=== PATIENT | male | born 1945 | race Caucasian/White ===

== ENCOUNTER 2016-03-15 10:33 | Day surgery (SDC) | payer OTHER ==
[~2016-03-15] VITALS: Ht 190.5 cm; Wt 117.9 kg
[~2016-03-15 10:33] MED LIST: CLOP75TA3 PO; INS7030U SUBQ; LISI-567 PO; LOVA10TA PO; Lactated Ringer's 1,000 ML IV ONE
[2016-03-15] MEDS ORDERED: Propofol 10,000 mCg/mL 20 mL Inj ONE (10:34)
[2016-03-15 11:27] VITALS: BP 124/79; PULSE 31; RESP 14; O2SAT 98
[2016-03-15] MEDS ORDERED: Lactated Ringer's 1,000 ML IV SCH (11:54)
--- NOTE | 2016-03-15 11:54 | PCM.HPANE ---
Patient Data Surgeon Admitting Provider: Attending Provider:Yakov Pratt MD Primary Care Physician:Uli Delgado MD Other Provider:[facility] Reason for Visit Colon Polyp Ht/WT & BMI Height (Feet): 6 Height (Inches): 3 Weight (Kilograms): 117.93 Body Mass Index 32.00 Allergies Coded Allergies: No Known Drug Allergies (Verified Allergy, Unknown, 03/14/16) Past Anesthesia History Anesthesia History: Denies:: Abnormal Airway, Anesthesia Reactions, Difficult Intubation, Fam Anesthesia Reaction, Fam Malignant Hypertherm, Malignant Hyperthermia Diabetes History Hx Diabetes?: Yes Current Bedside Blood Glucose: 84 MRSA MRSA: No Medications Reported Medications Clopidogrel Bisulfate (Plavix)75 Mg [id number] Mg PO DAILY 30 Days Ref 0 03/14/16 Insul NPH Hu Rec/Ins Rg Hu Rec (Novolin 70/30 U100 Insulin Vial)100 U/1 Ml U1 U SUBQ DIRECTED PRN diabetes control #1 VIAL Ref 0 03/14/16 Lovastatin 10 Mg [id number] Mg PO HS #30 TABLET Ref 0 03/14/16 Lisinopril 20 Mg [id number] Mg PO DAILY 30 Days Ref 0 03/14/16 History HEENT History: Positive for:: Hearing Problem Denies:: Abnormal Airway Difficult Intubation Hx of Heart Problems?: Yes Cardiovascular History: Positive for:: Hypertension Hx of Respiratory Problem?: No Neurological History: 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) Hx of GI Problems?: Yes Gastrointestinal History: Positive for:: Gastroesphageal Reflux Hx Surgeries?: Yes (back, vastectomy,angioplasty,adnoids, umbilical hernia) Hx Any Other Health Problems?: Yes Hx Diabetes: YesBedside Blood Glucose: 84 Hx Alcohol Use: No Stop/Bang Treated for Sleep Apnea?: No Do You Have a CPAP Machine?: No S-Snoring: Do You Snore Loudly: Yes T-Tired: feel tired, fatigued: No O-Obsered: Observed not breath: No P-Blood Pressure: treated: Yes B- Body Mass Index > 35 kg/m2: Yes A- Age over 50: Yes N- Neck Large Circumference: No G- Gender Male: Yes JUAN Total Score: 5 JUAN Risk Assessment: High Risk, =/>3 Yes Risk Assessment Category Category 1A: Patient has history of documented sleep apnea, and HAS NOT received any narcotic, sedative or anesthesia administration during this stay. Category 1B: Patient has history of documented sleep apnea, and HAS received any narcotic , sedative or anesthesia administration during this stay Category 2: Patient has SUSPECTED Obstructive Sleep Apnea, and HAS received any narcotic , sedative or anesthesia administration during this stay. Category 3: Patient has SUSPECTED Obstructive Sleep Apnea and HAS NOT received narcotic, sedative or anesthesia administration during this stay. Category 4: Outpatient in Procedural Areas with known sleep apnea or who screen positive for High Risk via the STOP/BANG questionnaire. Exam Exam Vital Signs Vital Signs Date Time Temp Pulse Resp B/P Pulse Ox O2 Delivery O2 Flow Rate FiO2 03/15/16 11:27 36.5 31 14 124/79 98 Room Air General Appearance: Oriented X3 HEENT/AIRWAY: MP 2 Lungs: Normal Air Movement Heart: Regular Rate/Rhythm Meds/Labs/Diagnostics Admission Meds Current Medications Lactated Ringer's (Lr) 1,000 ml @ 10 mls/hr Q24H ONCE IV Last administered on 03/15/16t 11:28; Start 03/15/16 at 06:00; Stop 03/16/16 at 05:59 Bedside Blood Glucose: 84 Plan Impression Patient chart reviewed, patient interviewed and anesthestic plan with risks, benefits, and alternatives discussed, and informed consent obtained. ASA Physical Status: ASA2 Mod Systemic Disease Anesthetic Plan: MAC Bene/Risks/Altern/Consents: Yes HP Complete Prior to Induction: Yes Candido Holder MD Mar 15, 2016 11:54
[2016-03-15] MEDS ORDERED: MetoCLOpramide 5 mg/mL 2 mL Inj IVPUSH PRN (11:55)
[2016-03-15] MEDS ORDERED: Ondansetron 2 mg/mL 2 mL Inj IVPUSH PRN (11:55)
[2016-03-15 12:28] VITALS: BP 110/72; PULSE 60; RESP 15; O2SAT 98
[2016-03-15 12:51] VITALS: BP 119/72; PULSE 62; RESP 16; O2SAT 98
[2016-03-15 12:54] VITALS: BP 125/70; PULSE 63; RESP 16; O2SAT 96
--- NOTE | 2016-03-15 13:07 | PCM.ANEP2 ---
Post Anesthesia Evaluation ASA/CMS Post Anesthesia VS in Patient's Normal Range?: Yes Resp Stable; Airway Patent?: Yes CV Function & Hydration Stable: Yes Mental Status Recovered?: Yes Pain control Satisfactory?: Yes N/V Control Satisfactory?: Yes Candido Holder MD Mar 15, 2016 13:07
--- NOTE | 2016-03-15 13:07 | PCM.ANEP1 ---
Post Anesthesia Phase 1 PACU Phase 1 Assessment Vital Signs Vital Signs Date Time Temp Pulse Resp B/P Pulse Ox O2 Delivery O2 Flow Rate FiO2 03/15/16 12:54 63 16 125/70 96 Room Air 03/15/16 12:51 62 16 119/72 98 Room Air 03/15/16 12:28 60 15 110/72 98 Room Air 03/15/16 11:27 36.5 31 14 124/79 98 Room Air Anesthetic Administered: MAC Level of Alertness: Awake, talking Pain: No Nausea or Vomiting: No Oxygen Delivery: Room Air Lungs: Normal Air Movement Candido Holder MD Mar 15, 2016 13:07
--- NOTE | 2016-03-18 07:17 | ENDO ---
[address] [address] ENDOSCOPY PROCEDURE PATIENT: ALEC SHANNON : 1945 MR#: [id number] ADMIT: 03/15/2016 JOB ID: [id number] DATE: 03/15/2016 OPERATION: Colonoscopy with biopsy. PREOPERATIVE DIAGNOSIS(ES): History of colon polyps. POSTOPERATIVE DIAGNOSIS(ES): 1. Suboptimal prep. 2. Melanosis coli. 3. Two cecal polyps measuring 2 mm in size, removed by cold biopsy forceps. 4. Diverticulosis moderate in the sigmoid and ascending colon. ANESTHESIA: Monitored anesthesia care. COMPLICATIONS: None. BLOOD LOSS: Minimal. DESCRIPTION OF PROCEDURE: After risks and benefits were explained to the patient, informed consent was obtained. After anesthesia was administered, the colonoscope was inserted per rectum to cecum and the mucosa carefully examined. Prep of the patient was excellent. After the procedure was done, the scope was withdrawn and the procedure terminated. FINDINGS: Upon inspection of the anus, no masses, hemorrhoids, ulcers, or fissures that were seen. Throughout the entire examination, there was moderate sigmoid and ascending colon diverticulosis. There were also two polyps seen in the cecum measuring 2 mm in size, removed by cold biopsy forceps. There was suboptimal prep as liquid stool was seen in various parts of the colon. Retroflexion was normal. IMPRESSIONS: 1. Melanosis coli. 2. Two cecal polyps measuring 2 mm in size, removed by cold biopsy forceps. 3. Moderate sigmoid and ascending colon diverticulosis. RECOMMENDATIONS: High-fiber diet. Repeat colonoscopy in five years for colorectal cancer screening. The patient will also need a two day prep.
--- NOTE | 2016-03-19 11:54 | PATH ---
SURGICAL PATHOLOGY Attending Physician:Yakov Pratt MD CASE STATUS: Signed Out PATIENT NAME: ALEC SHANNON PID: [id number] : 1945 DATE COLLECTED:03/15/2016 21:49 SPECIMEN: Colon, Biopsy CLINICAL HISTORY: PATIENT HISTORY OF POLYPS CECAL POLYPS X2 FINAL DIAGNOSIS: Cecal Polyps: Tubular adenoma involving all biopsy fragments. ICD10 D12.0 GROSS DESCRIPTION: The specimen is received in one formalin filled container labeled with the patient's name, sublabeled "cecal polyps" and consists of 3 portions of tissue which aggregate to 0.3 x 0.3 x 0.2 CM. The specimen is entirely submitted in cassette. 03/16/2016 [facility] ICD-9 CODES: CPT CODES: 1: 62987 Electronically Signed Out Candelario Christian MD [facility] Pathology [facility] [address], [place] [address] Technical component performed at [facility] [employer], [address] [place] [address] [address], [place], [address]
== END 2016-03-15 23:59 | disposition home or self-care (01) ==
LOC: END 10:33
PROVIDERS: ATTEND Internal Medicine Gastroenterology
DX: Z12.11 Encounter for screening for malignant neoplasm of colon (principal); D12.0 Benign neoplasm of cecum; K57.30 Diverticulosis of large intestine without perforation or abscess without bleeding; K63.89 Other specified diseases of intestine; Z86.010 Personal history of colon polyps; I10 Essential (primary) hypertension; E11.9 Type 2 diabetes mellitus without complications; Z86.73 Personal history of transient ischemic attack (TIA), and cerebral infarction without residual deficits; Z85.46 Personal history of malignant neoplasm of prostate; Z87.891 Personal history of nicotine dependence; Z79.4 Long term (current) use of insulin; Z79.02 Long term (current) use of antithrombotics/antiplatelets
CPT/HCPCS: 45380; J7120

== ENCOUNTER 2016-10-08 11:53 | Inpatient (IN) | payer OTHER, MEDICARE ==
[~2016-10-08] VITALS: Ht 190.5 cm; Wt 116.4 kg
[~2016-10-08 11:53] MED LIST changes: -Lactated Ringer's 1,000 ML IV ONE
[2016-10-08 11:57] VITALS: BP 113/54; PULSE 68; RESP 14; O2SAT 97
--- NOTE | 2016-10-08 11:58 | ED.REPORT ---
HPI-Extremity Problem Lower Date of Service Oct 08, 2016 ED Provider: Cristi Ruiz MD Pt is a 71 y/o male with a history of CAD, HTN, IDDM, and TIA who presents to the ED via EMS complaining of right hip pain s/p tripping over a parking block at the [place] onset this morning. He states he cannot bear weight on his right leg. He denies chest pain, loss of consciousness, or headache. Medication list includes lisinopril and lovastatin. Nursing Notes Stated Complaint: RT HIP PAIN Chief Complaint: Extremity Trauma Nursing Notes Reviewed: Yes Allergies: Coded Allergies: No Known Drug Allergies (Verified Allergy, Unknown, 03/14/16) Scheduled ([Flomax]) PO DAILY Dipyridamole/Aspirin 200-25 mg (Aggrenox 200-25 mg) 1 Each Capsule 1 CAPSULE PO DAILY Lisinopril (Lisinopril) 20 Mg Tablet 20 MG PO DAILY Lovastatin (Lovastatin) 10 Mg Tablet 10 MG PO HS Scheduled PRN Insul NPH Hu Rec/Ins Rg Hu Rec (Novolin 70/30 U100 Insulin Vial) 100 U/1 Ml U 25 U SUBQ BID PRN PRN diabetes control Miscellaneous Medications Multivitamin (Once Daily) 1 Each Tablet 1 EACH PO General Time Seen by MD: 11:55 Chief Complaint Hip injury right Hx Obtained From: Patient Arrived By: Ambulance Onset Occurred: 1 - 4 hours ago Caused by: Fall on ground Location: : Hip right Quality: Painful Severity: Current: Moderate Associated with: Reports: Unable to bear weight Exacerbated by: Movement Recent Healthcare: No recent doctor visit, No recent hospitalization Similar Sx Previous: No Past Medical History Past Medical History TIA Arthritis Ulcers Constipation Chronic lower back pain Reports: Coronary artery disease, Diabetes mellitus, GERD, Hypertension Past Surgical History Vasectomy Adnoids Umbilical hernia Reports: Angioplasty Social History Other Social History: Good social support Ambulatory Status Independent Review of Systems Musculoskeletal: Reports: Joint pain Neurologic: Reports: Problem walking, Denies: Change LOC, Headache, Numbness, Weakness Complete sys rev & neg: except as marked. Cardiovascular: Denies: Chest pain Physical Exam Initial Vital Signs Vital Signs (First) Date Time Temp Pulse Resp B/P Pulse Ox O2 Delivery O2 Flow Rate FiO2 10/08/16 11:57 36.4 68 14 113/54 97 Room Air Initial VS: Reviewed Skin: Warm, Dry, No cyanosis Neurologic: Alert, Oriented, Nonfocal Psychiatric: Mood/affect normal, Behavior normal, Normal thought content Lower Extremity / Pelvis / MS: Neurologic intact, Vascular intact, Pelvis stable R leg externally rotated Ankle / Foot: Neurologic intact, Vascular intact General/Constitutional: Awake, Alert Respiratory / Chest: Atraumatic, Breath sounds NL, Breath sounds = bilat, No respiratory distress Cardiovascular: Heart rate NL, Regular rhythm, Heart sounds NL, No murmurs Interpretation & Diagnostics Interpretation & Diagnostics: CT HIP: IMPRESSION: 1. Angulated, displaced right femoral neck fracture as above. No other fracture or dislocation. 2. L5-S1 spondylolysis and trace spondylolisthesis. Dictated by: Megan Curtis M.D. on 10/08/2016 at 14:46 Approved by: Megan Curtis M.D. on 10/08/2016 at 14:48 Lab Results Interpretation Result Diagram: 10/08/16 1210 10/08/16 1210 Test 10/08/16 12:10 White Blood Count 6.5th/mm3 (3.8-10.1) Red Blood Count 4.63mil/mm3 (4.40-5.80) Hemoglobin 14.3g/dL (13.8-17.2) Hematocrit 43.0% (41.0-50.0) Mean Corpuscular Volume 92.9fL (81-100) Mean Corpuscular Hemoglobin 30.9pg (27.0-35.0) Mean Corpuscular Hemoglobin Concent 33.3% (32.0-37.0) Red Cell Distribution Width 12.6% (12.3-15.4) Platelet Count 123bil/L (150-400) Neutrophils (%) (Auto) 63.1% (40-74) Lymphocytes (%) (Auto) 20.4% (14-46) Monocytes (%) (Auto) 13.6% (4-12) Eosinophils (%) (Auto) 2.0% (0-5) Basophils (%) (Auto) 0.3% (0-3) Prothrombin Time 10.3sec (8.1-12.5) Prothromb Time International Ratio 0.96ratio Sodium Level 140mEq/L (134-144) Potassium Level 4.0mEq/L (3.5-5.2) Chloride Level 104mEq/L (97-108) Carbon Dioxide Level 24mmol/L (18-29) Blood Urea Nitrogen 21mg/dL (8-27) Creatinine 1.17mg/dL (0.76-1.27) Estimat Glomerular Filtration Rate 65mL/min (>59) Glucose Level 92mg/dL (60-99) Calcium Level 8.8mg/dL (8.5-10.1) Total Bilirubin 0.4mg/dL (0.0-1.2) Aspartate Amino Transf (AST/SGOT) 20U/L (0-50) Alanine Aminotransferase (ALT/SGPT) 16U/L (0-44) Alkaline Phosphatase 75U/L (25-160) Total Protein 7.1g/dL (6.4-8.4) Albumin 4.0g/dL (3.4-5.0) ECG Interpretation ECG Interpretation: no ST changes Time: 13:03 Interpreted by: ED physician Normal ECG Interpretation: Normal rate (62), Normal sinus rhythm X-Ray Chest Interpretation Chest Xray Interpretation: IMPRESSION: Negative chest. No acute cardiopulmonary process is evident. Dictated by: Colt Mtz M.D. on 10/08/2016 at 13:47 Approved by: Colt Mtz M.D. on 10/08/2016 at 14:12 View: Portable, 1 view Interpretation / Wet Read by: Interpret - Radiologist X-Ray Interpretation Xray Interpretation: Hip/Pelvis X-Ray: IMPRESSION: Minimally displaced right femoral neck fracture. Dictated by: Colt Mtz M.D. on 10/08/2016 at 11:46 Approved by: Colt Mtz M.D. on 10/08/2016 at 11:48 X-Ray Ordered: Hip right Interpretation / Wet Read by: Interpret - Radiologist Xray Interpretation: IMPRESSION: Nondisplaced femoral neck fracture. No dislocation. Dictated by: Colt Mtz M.D. on 10/08/2016 at 13:46 Approved by: Colt Mtz M.D. on 10/08/2016 at 13:47 X-Ray Ordered: Femur right Interpretation / Wet Read by: Interpret - Radiologist Re-Eval/Medical Decision Med Decision/Clinical Course 71-year-old male on Aggrenox presenting status post ground-level fall with right femoral neck fracture. Urodynamic stable. Discussed with orthopedics will admit nothing by mouth at midnight. Type and screen ordered. CT ordered. Source of Hx: Old records Re-Evaluation/Progress #1: Time of Eval: 13:27 Re-Evaluation/Progress Note: Discussed X-ray results and plan to consult with ortho. Re-Evaluation/Progress #2: Time of Eval: 13:37 Re-Evaluation/Progress Note: Pt rechecked. Discussed plan for admit. Patient understands and agrees to plan. All questions were addressed. Consultation #1: Referral / Consult Name: Gerardo Mendoza MD Consulted With: Orthopedic Call Returned at: 13:34 Oakes Machine Operator: Agrees with eval, Agrees with plan Note: Discussed pt's case with orthopedic surgeon, Dr. Mendoza. He recommends admission to hospital, CT of hip, and NPO at midnight. Consultation #2: Referral / Consult Name: Nicola Erickson MD Consulted With: Hospitalist Call Returned at: 14:54 [employer]akes Machine Operator: Agrees with eval, Agrees with plan, Accepts admit Counseled Regarding: Diagnosis, Lab results, Need for follow-up, When/why to return to ED Discharge & Departure Impression: Primary Impression: Femoral neck fracture Encounter type: initial encounter Fracture type: closed Laterality: right Qualified Code: S72.001A - Fracture of unspecified part of neck of right femur, initial encounter for closed fracture Disposition: ADMITTED TO HOSPITAL Discharge Condition All VS Reviewed: Yes Condition: Stable Referrals: EREN ANTUNEZ MD (PCP) Scribe Attestation Portions of this note were transcribed by Neelam Buchanan and Jennifer Porter. I, Dr. Ruiz, personally performed the history, physical exam and medical decision-making; I reviewed and confirmed the accuracy of the information in the transcribed note. copies to: EREN ANTUNEZ MD, Ben M MD Oct 08, 2016 11:57 Neelam Buchanan Oct 08, 2016 12:10 Isa Porter Oct 08, 2016 13:10
--- NOTE | 2016-10-08 12:49 | DRSVH ---
PROCEDURE: X-RAY PELVIS W/LAT HIP (RT) ([id number]) INDICATIONS: Right hip trauma TECHNIQUE: AP pelvis with lateral view(s) of the right hip(s). COMPARISON: None. FINDINGS: Bones: There is a minimally displaced femoral neck fracture on the right. No suspicious osseous lesi ons are evident. There is no dislocation. No additional fractures are evident. Mild to moderate deg enerative changes of both hips are noted. There also degenerative changes present involving the incl uded lumbosacral spine and pubis symphysis. Soft tissues: The visualized bowel gas pattern is normal. No suspicious soft tissue calcifications. Vascular calcifications are noted overlying the right hip. Prostatic seeds are present. IMPRESSION: Minimally displaced right femoral neck fracture. Dictated by: Colt Mtz M.D. on 10/08/2016 at 11:46 Approved by: Colt Mtz M.D. on 10/08/2016 at 11:48
[2016-10-08 13:01] LABS: BASOPHILS % (AUTO) 0.3 % (0-3); MONOCYTES % (AUTO) 13.6 % (4-12); Mean Corpuscular Hemoglobin 30.9 pg (27.0-35.0); Mean Corpuscular Volume 92.9 fL (81-100); NEUTROPHILS % (AUTO) 63.1 % (40-74); Platelet Count 123 bil/L (150-400)
[2016-10-08] MEDS ORDERED: Ondansetron 2 mg/mL 2 mL Inj IVPUSH PRN ×2 (13:30→15:05)
--- NOTE | 2016-10-08 14:04 | PCM.CONORT ---
Subjective Date of Surgery: Oct 09, 2016 Surgeon Admitting Provider: Attending Provider: Primary Care Physician:Uli Delgado MD Other Provider: Reason for Consultation: Right hip pain Allergy Allergies: Coded Allergies: No Known Drug Allergies (Verified Allergy, Unknown, 03/14/16) Medications Clopidogrel Bisulfate (Plavix) 75 Mg Tablet 75 MG PO DAILY (Reported) Insul NPH Hu Rec/Ins Rg Hu Rec (Novolin 70/30 U100 Insulin Vial) 100 U/1 Ml U 1 U SUBQ DIRECTED PRN PRN diabetes control (Reported) Lisinopril (Lisinopril) 20 Mg Tablet 20 MG PO DAILY (Reported) Lovastatin (Lovastatin) 10 Mg Tablet 10 MG PO HS (Reported) History History of ENT Problems?: No HEENT History: Positive for:: Hearing Problem Denies:: Abnormal Airway Difficult Intubation Denture Type: None Teeth Condition: Within Normal Limits Hx of Heart Problems?: Yes Cardiovascular History: Positive for:: Hypertension Hx of Respiratory Problem?: No Respiratory History: Denies:: Asthma COPD Chest Surgery Cough Dyspnea Emphysema Hemoptysis Oxygen Administration Pneumonia Pulmonary Embolism Tuberculosis Use of C-PAP Machine Use of Inhalers / NEBS Hx Neurologic Problems?: No Neurological History: 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) Hx of GI Problems?: No Hx of Problems?: No Hx Musculoskeletal Problems?: Yes Other History/Comment Ramon Thakur is a 71 year old male with a history significant but not limited to CAD, HTN, IDDM, and TIA who presents to the ED with right hip pain s/p tripping over a parking block at the [facility] this morning. The patient states that their pain is sharp in nature and mild/moderate in severity localized in the hip and groin without radiation. This has been progressing over the past day after tripping over a parking block. Moreover, the pain is exacerbated by activities, especially with movement. Rest seems to improve the symptoms. Patient reports no associated symptom but with some leg weakness. Previous treatment has included none.. There is no reports numbness, tingling, or weakness to the affected distal lower extremity. There is no known history of hip problems as a child/adolescent such as SCFE, Perthes, dysplasia, OI, or ligamentous laxity. The patient denies any fever, chills, nausea, vomiting, chest pain, shortness of breath, or calf tenderness. Work/hobbies/sports include: live in [facility], accompanied by brother and sister in law Hx Surgeries?: Yes (back, vastectomy,angioplasty,adnoids, umbilical hernia) Hx Any Other Health Problems?: Yes Hx Diabetes: Yes Hx Alcohol Use: No Smoking Status: Former Smoker Objective Exam Vital Signs & I/O Vital Sign- Last 8 Hours Date Time Temp Pulse Resp B/P Pulse Ox O2 Delivery O2 Flow Rate FiO2 10/08/16 11:57 36.4 68 14 113/54 97 Room Air Lab & Micro Results Laboratory Tests Test 10/08/16 12:10 White Blood Count 6.5th/mm3 (3.8-10.1) Red Blood Count 4.63mil/mm3 (4.40-5.80) Hemoglobin 14.3g/dL (13.8-17.2) Hematocrit 43.0% (41.0-50.0) Mean Corpuscular Volume 92.9fL (81-100) Mean Corpuscular Hemoglobin 30.9pg (27.0-35.0) Mean Corpuscular Hemoglobin Concent 33.3% (32.0-37.0) Red Cell Distribution Width 12.6% (12.3-15.4) Platelet Count 123bil/L (150-400) Neutrophils (%) (Auto) 63.1% (40-74) Lymphocytes (%) (Auto) 20.4% (14-46) Monocytes (%) (Auto) 13.6% (4-12) Eosinophils (%) (Auto) 2.0% (0-5) Basophils (%) (Auto) 0.3% (0-3) Sodium Level 140mEq/L (134-144) Potassium Level 4.0mEq/L (3.5-5.2) Chloride Level 104mEq/L (97-108) Carbon Dioxide Level 24mmol/L (18-29) Blood Urea Nitrogen 21mg/dL (8-27) Creatinine 1.17mg/dL (0.76-1.27) Estimat Glomerular Filtration Rate 65mL/min (>59) Glucose Level 92mg/dL (60-99) Calcium Level 8.8mg/dL (8.5-10.1) Total Bilirubin 0.4mg/dL (0.0-1.2) Aspartate Amino Transf (AST/SGOT) 20U/L (0-50) Alanine Aminotransferase (ALT/SGPT) 16U/L (0-44) Alkaline Phosphatase 75U/L (25-160) Total Protein 7.1g/dL (6.4-8.4) Albumin 4.0g/dL (3.4-5.0) Result Diagram: 10/08/16 1210 10/08/16 1210 Review of Systems: Constitutional: Negative, except as otherwise mentioned in the history above. Ophthalmologic: Negative, except as otherwise mentioned in the history above. Cardiovascular: Negative, except as otherwise mentioned in the history above. Respiratory: Negative, except as otherwise mentioned in the history above. Gastrointestinal: Negative, except as otherwise mentioned in the history above. Genitourinary: Negative, except as otherwise mentioned in the history above. Musculoskeletal: Negative, except as otherwise mentioned in the history above. Neurological: Negative, except as otherwise mentioned in the history above. Psychiatric: Negative, except as otherwise mentioned in the history above. Hematologic/Lymphatic: Negative, except as otherwise mentioned in the history above. Allergic/Immunologic: Negative, except as otherwise mentioned in the history above. H&P Surgical Exam Exam Musculoskeletal: CONST: WD,WN, NAD, A+OX3 OCULAR: EOMI, no conjunctivitis/icterus ENT: no deformities, scars or lesions CARDIAC: Pulse is regular. No cyanosis,clubbing,edema RESP: regular,unlabored MSK: normal light touch SPN/DPN/TN distributions. 5/5 DF/PF/Inv/Ev, 2+ DP Right HIP - scars.- swelling, - erythema - atrophy or asymmetry. TTP hip laterally and groin ROM logroll- painful Strength deferred Signs deferred Additional Information Two-view x-ray of the right hip demonstrates displaced right femoral neck fracture H&P Preop Plan Impression Right femoral neck fracture Problems: Risks & Benefits * We have reviewed the risks and benefits as well as the alternatives to surgery. All questions were answered to the patient's satisfaction and a counseling note to that effect. The patient has provided informed consent. * I have counseled the patient regarding the deleterious effects that smoking during the perioperative period can have upon wound healing, infection rates, and the overall rate of complications. Plan Nonweightbearing right lower extremity admit to medicine Pain medications Recommend CT scan of the right hip X-ray of the right knee to rule out concomitant fractures Plan for right hip hemiarthroplasty Medical optimization for surgery tomorrow, reverse anticoagulation for OR tomorrow Continue medical management per primary Nothing by mouth after midnight DVT prophylaxis with SCDs and YENNI merida Informed consent obtained I reviewed my findings with the patient. The patient remains symptomatic following the initial injury. In light of the ongoing symptoms, our plan is to proceed with surgical intervention. I have explained to the patient the nature of the surgery as well as the perioperative recovery including the risks, benefits and alternatives. A clear explanation was given to the patient regarding the condition present, and the available conservative and surgical options. It was emphasized that the risks and benefits of surgery include but are not limited to infection, wound healing problems, damage to adjacent structures such as nerves, blood vessels and tendons, assistant terminal manager disability and pain, arthritis, hypersensitivity, deep vein thrombosis, pulmonary embolism, broken hardware, failure of surgery, need for further procedures at time of surgery or later, loss of limb, heart attack, stroke, and . The patient was given an explanation and the patient voiced understanding of what to expect after the procedure or surgery, the limitations in activities of daily living, the likely duration for post operative recovery and the instructions that are to be followed. At the end the patient was invited to seek clarification or ask further questions but there were none. I have advised the patient first that there are no guarantees as to outcome and that their ultimate improvement is largely based on the extent of the pre-existing underlying pathology. The patient was instructed to be n.p.o. past midnight. The patients questions were answered and they stated understanding of the nature of the surgical procedure and gave written and verbal consent to proceed. The patient voiced understanding of the entire consultation. Gerardo Mendoza MD Oct 08, 2016 14:04 and tendons, snf disability and pain, arthritis, hypersensitivity, deep vein thrombosis, pulmonary embolism, broken hardware, failure of surgery, need for further procedures at time of surgery or later, loss of limb, heart attack, stroke, and . The patient was given an explanation and the patient voiced understanding of what to expect after the procedure or surgery, the limitations in activities of daily living, the likely duration for post operative recovery and the instructions that are to be followed. At the end the patient was invited to seek clarification or ask further questions but there were none. I have advised the patient first that there are no guarantees as to outcome and that their ultimate improvement is largely based on the extent of the pre-existing underlying pathology. The patient was instructed to be n.p.o. past midnight. The patients questions were answered and they stated understanding of the nature of the surgical procedure and gave written and verbal consent to proceed. The patient voiced understanding of the entire consultation. Gerardo Mendoza MD Oct 08, 2016 14:04
--- NOTE | 2016-10-08 14:48 | DRSVH ---
PROCEDURE: X-RAY RIGHT FEMUR, TWO VIEWS ([id number]) INDICATIONS: R hip fracture TECHNIQUE: 2 views of the femur were acquired. COMPARISON: [facility], CR, XR PELVIS W LATERAL HIP RT, 10/08/2016, 12:19. FINDINGS: Bones: A nondisplaced fracture through the femoral neck is identified. Otherwise, the remainder of t he femur is intact. There mild degenerative changes involving the right knee and at least moderate d egenerative changes of the right hip. Imaged pelvic bones are grossly intact. No dislocation or ted picious osseous lesions are evident. Soft tissues: No suspicious soft tissue calcifications or masses. Prostatic seeds are noted. Vascu lar calcifications involving the right thigh are present. IMPRESSION: Nondisplaced femoral neck fracture. No dislocation. Dictated by: Colt Mtz M.D. on 10/08/2016 at 13:46 Approved by: Colt Mtz M.D. on 10/08/2016 at 13:47
--- NOTE | 2016-10-08 14:50 | DRSVH ---
PROCEDURE: CT HIP RIGHT W/O CONTRAST ([id number]) INDICATIONS: R hip fracture TECHNIQUE: Noncontrast 3 mm axial sections acquired through the bony pelvis. Additional 3 mm axial sections acq uired through the symptomatic hip joint, with coronal and sagittal reformats. COMPARISON: None. FINDINGS: Image quality: Excellent. Bones: A sclerotic lesion is present within the posterior left iliac bone which may represent a small bone island. A small bone island is also likely present in the right iliac bone. There is an angulated, displaced right femoral neck fracture. The apex of the fracture is oriented an teriorly. The femoral head remains articulated with the acetabulum. No other fracture or dislocation. The bilateral pars interarticularis defects with trace L5-S1 anterolisthesis. Soft tissues: Soft tissues are unremarkable. IMPRESSION: 1. Angulated, displaced right femoral neck fracture as above. No other fracture or dislocation. 2. L5-S1 spondylolysis and trace spondylolisthesis. Dictated by: Megan Curtis M.D. on 10/08/2016 at 14:46 Approved by: Megan Curtis M.D. on 10/08/2016 at 14:48
[2016-10-08] MEDS ORDERED: Polyethylene Glycol (PEG) 17 Gm Powder PO PRN (15:05)
[2016-10-08] MEDS ORDERED: Alum-Mag Hydrox-Simeth 30 mL Suspension PO PRN (15:05)
[2016-10-08 15:12] VITALS: BP 115/74; PULSE 76; RESP 18; O2SAT 99
--- NOTE | 2016-10-08 15:14 | DRSVH ---
PROCEDURE: X-RAY CHEST ONE VIEW ([id number]) INDICATIONS: FELL TODAY; PREOPERATIVE FOR HIP FRACTURE TECHNIQUE: One view of the chest was acquired. COMPARISON: None. FINDINGS: Surgical changes and devices: None. Lungs and pleura: No pleural effusions or pneumothorax. Lungs are clear. Mediastinum: Mediastinal contours appear normal. Heart size is normal. Bones and chest wall: No suspicious bony lesions. Overlying soft tissues appear unremarkable. IMPRESSION: Negative chest. No acute cardiopulmonary process is evident. Dictated by: Colt Mtz M.D. on 10/08/2016 at 13:47 Approved by: Colt Mtz M.D. on 10/08/2016 at 14:12
[2016-10-08 15:57] VITALS: BP 138/73; PULSE 60; RESP 20; O2SAT 96
[2016-10-08 16:08] LABS: INR 0.96 ratio
--- NOTE | 2016-10-08 16:49 | NUR ---
Admit To [facility] room 1022 from ER at 15:30 via stretcher. Report received from Jaskaran Duvall RN. Pt alert and oriented. Reports R leg/hip pain 5/10, declines pain medication. States "I took some Tylenol." Per report he "hates narcotics." Repositioned limb for comfort. Call light in hand.
[2016-10-08] MEDS ORDERED: MULT-666 PO (17:12)
[2016-10-08] MEDS ORDERED: Flomax PO (17:12)
[2016-10-08] MEDS ORDERED: DPAS20025 PO (17:12)
[2016-10-08] MEDS: oxyCODONE-Acetamin 5-325 mg Tablet PO PRN (18:44)
[2016-10-08 19:48] VITALS: BP 157/77; PULSE 70; RESP 18; O2SAT 93
--- NOTE | 2016-10-08 19:59 | PCM.HPMED ---
Subjective Date of Service Oct 08, 2016 Primary Provider: Admitting Physician: Gerardo Mendoza MD Primary Care Physician: Uli Antunez MD Attending Physician: Gerardo Mendoza MD Chief Complaint: Right Hip pain History of Present Illness: Mr. Ramon Thakur is a very pleasant 71 year old gentleman with a history prostate cancer, [place] 2001, TIA 2009, hypertension, IDDM, hyperlipidemia, who presents to the [facility] due to right hip pain after ground level fall. Patient reports having "heavy legs" following TIA in 2009, and was walking back to his car in the [place] parking lot when his foot caught a concrete parking block, causing him to trip and fall onto his right elbow and right hip. He could not bear weight on his right leg and was brought to the ED via EMS. He denies syncope or loss of consciousness, dizziness, headache, headache, chest pain, shortness of breath. Social: Lives in [place], alone with a cat, in a house. Patient is Full code. In the ED patients vitals:T-36.4, HR-68, RR-14, BP-113/54, 97% RA. EKG reviewed - Normal sinus rhythm, no acute ST changes. ECHO in Mar and was cleared at that time for prostate procedure in April. - Do not have access to outpatient records. CT Hip - 1. Angulated, displaced right femoral neck fracture as above. No other fracture or dislocation. 2. L5-S1 spondylolysis and trace spondylolisthesis. T-36.4, HR-68, RR-14, BP-113/54, 97% RA. In the ED patient received: zofran, Morphine IV, Tylenol. Orthopedic surgery was consulted and planning for right hemiarthroplasty tomorrow. NPO after midnight. Review of Systems: A comprehensive review of systems was conducted with the patient and found to be negative except as above in the History of Present Illness. Allergies Coded Allergies: No Known Drug Allergies (Verified Allergy, Unknown, 03/14/16) Home Medications Scheduled ([Flomax]) PO DAILY Dipyridamole/Aspirin 200-25 mg (Aggrenox 200-25 mg) 1 Each Capsule 1 CAPSULE PO DAILY Lisinopril (Lisinopril) 20 Mg Tablet 20 MG PO DAILY Lovastatin (Lovastatin) 10 Mg Tablet 10 MG PO HS Scheduled PRN Insul NPH Hu Rec/Ins Rg Hu Rec (Novolin 70/30 U100 Insulin Vial) 100 U/1 Ml U 25 U SUBQ BID PRN PRN diabetes control Miscellaneous Medications Multivitamin (Once Daily) 1 Each Tablet 1 EACH PO PMH Prostate cancer with radiation therapy, last checked in april 2016 TIA 2009 Arthritis Ulcers Constipation Chronic lower back pain Coronary artery disease Diabetes mellitus GERD Hypertension Surgical History Vasectomy Adnoids Umbilical hernia Angioplasty Family History Mother - CHF Father - Passed from bacteremia of unknown source. Social History Hx Alcohol Use: No Smoking Status: Former Smoker Exam Vital Signs Vital Sign - Last Date Time Temp Pulse Resp B/P Pulse Ox O2 Delivery O2 Flow Rate FiO2 10/08/16 15:12 76 18 115/74 99 Room Air 10/08/16 11:57 36.4 Exam General: Elderly gentleman lying in bed and in no acute distress while lying still, he is in severe distress when right leg is moved, well-developed, well- nourished, appropriately interactive HEENT: Normocephalic, atraumatic. External ears without defect. Pupils equal, round, and reactive to light and accommodation. Anicteric sclerae, moist conjunctivae, and no lid lag. Oropharynx free of erythema and cobble stoning with moist mucosa. Neck: Supple with full range of motion. No jugular venous distension. No bruits. No lymphadenopathy or thyromegaly. Cardiovascular: Regular rate and rhythm with no murmurs, rubs, or gallops appreciated Pulmonary: Clear to auscultation bilaterally with no crackles, wheezes, or rhonchi. Normal respiratory effort with no use of accessory muscles. Abdomen: Bowel tones present. Soft, nontender, nondistended. No hepatosplenomegaly or masses appreciated. Extremities: No clubbing, cyanosis, edema, or lymphadenopathy appreciated. Right lower extremity moderate to severely tender to movement. Skin: Normal temperature, turgor, and texture; no rash, ulcers, or subcutaneous nodules appreciated. Neurological: Cranial nerves grossly intact. Normal muscle strength, tone, and bulk. Reflexes, coordination, and sensory function within normal limits. No known gait impairment. Psychiatric: Normal mood and affect. Alert and oriented to person, place, and time. Lab and Diagnostics Result Diagram: 10/08/16 1210 10/08/16 1210 X-Rays, CTs and MRIs CT HIP RIGHT W/O CONTRAST IMPRESSION: 1. Angulated, displaced right femoral neck fracture as above. No other fracture or dislocation. 2. L5-S1 spondylolysis and trace spondylolisthesis. Approved by: Megan Curtis M.D. on 10/08/2016 at 14:48 Assessment & Plan Mr. Ramon Thakur is a very pleasant 71 year old gentleman with a history prostate cancer, [place] 2001, TIA 2009, hypertension, IDDM, hyperlipidemia, who presents to the [facility] due to right hip pain after ground level fall. CT hip show non displaced right femoral neck fracture. Orthopedic surgeon planning for right hemiarthroplasty tomorrow. Acute Non-displaced Femoral neck fracture, right sided, 2nd to ground level fall. Present on admission. Active. - On a normal day, patient can negotiate 2 flights of stars without difficulty or chest pain/pressure. Medically cleared for surgery. - CT hip as above. - Orthopedic surgery consulted. - Holding antiplatelets/SQ Heparin. - IV Morphine for severe pain PRN. - NPO after midnight for Right Hemiarthroplasty. Chronic conditions: Insulin Using Diabetes Mellitus - 70/30 Novolin 25U BID, will use Humulin substitute here. - HA1c ordered. Hypertension - Continue home Lisinopril 20 mg daily. History of CVA - On Aggrenox at home, holding for surgery. - Continue home Lovastatin 10 Mg HS. History of [place], no stents, 2001. - On Aggrenox at home, holding for surgery. History of Prostate Cancer, radiation therapy, Ongoing. - Continue Flomax Acetaminophen for mild pain when necessary. Bowel regimen Senna and MiraLAX scheduled and PRN. Zofran when necessary for nausea and vomiting. SubQ heparin held for now. SCDs in place. High-risk medications: IV Morphine Patient Status: Patient is admitted under inpatient status with expected length of stay greater than 2 midnights due to severity of presenting symptoms, risk of adverse event, and complexity of treatment plan. Pain Evaluation: Adequate Pain Control Resuscitation Status: CPR: Attempt Resuscitation Attending Statement Patient seen and examined with resident physician , I agree with that history, exam, assessment and plan as outlined above copies to: ULI ANTUNEZ MD, COREY P DO Oct 08, 2016 15:15 Nicola Erickson MD Oct 09, 2016 06:49
[2016-10-08] MEDS: Insulin Human NPH-Reg 70-30 100 Unit/mL 3 mL Pen SUBQ SCH (20:30)
[2016-10-09] VITALS (15 sets, daily range): BP systolic 105–149; BP diastolic 49–74; PULSE 63–94; RESP 11–21; O2SAT 93–98
--- NOTE | 2016-10-09 04:12 | NUR ---
pain pt complained of pain 8/10 in his R hip all the way down to his foot. at start of shift nurse gave him 2mg of IV morphine. he told nurse the morphine did nothing for his pain. nurse offered him more morphine but pt declined saying that he had morphine earlier as well and it hadn't helped. MD was paged to ask for different medication. MD gave order for IV dilaudid however when nurse offered it pt thought he could go to sleep without it. nurse has checked on pt throughout the night and he appeared to be sleeping. This Am however pt has woken up and again says his pain is a 8-9/10. he states he is getting scared about having to be moved from his bed to the [facility] for surgery. nurse has given him 1mg of IV dilaudid and will reassess shortly. pedal pulses are palpable in his R foot and he can wiggle his toes. he has baseline neuropathy in both feet. hourly rounding continues. Addendum: 10/09/16 at 0513 by CYN ZUNIGA RN pt states dilaudid was effective. her says it's "perfecto better". resting in bed appearing comfortable at this time. nurse told pt to let nursing staff know when his pain starts to increase again and not let it get out of control.
[2016-10-09] MEDS: HYDROmorphone 1 mg/mL Inj IVPUSH PRN ×3 (04:17→09:52)
[2016-10-09 06:48] LABS: Mean Corpuscular Hemoglobin 31.2 pg (27.0-35.0); Mean Corpuscular Volume 93.5 fL (81-100)
[2016-10-09 07:00] LABS: INR 0.99 ratio
[2016-10-09] MEDS: Insulin Human NPH-Reg 70-30 100 Unit/mL 3 mL Pen SUBQ SCH ×3 (07:31→22:21)
[2016-10-09] MEDS ORDERED: Succinylcholine Chloride 20 mg/mL 5 mL Inj ONE (08:07)
[2016-10-09] MEDS ORDERED: fentaNYL-PF 50 mCg/mL 2 mL Inj ONE (08:07)
[2016-10-09] MEDS ORDERED: Ondansetron 2 mg/mL 2 mL Inj ONE (08:07)
[2016-10-09] MEDS ORDERED: Phenylephrine/NS 100 mCg/mL 10 mL Syringe IVPUSH ONE (08:07)
[2016-10-09] MEDS ORDERED: EPHEDrine/NS 5 mg/mL 5 mL Syringe ONE (08:07)
[2016-10-09] MEDS ORDERED: Propofol 10,000 mCg/mL 20 mL Inj ONE (08:07)
--- NOTE | 2016-10-09 09:12 | NUR ---
Spoke with Maria Dolores in patient access at [facility] this patient is 100 % service connected Updated SR. PAYROLL PROCESSOR
[2016-10-09] MEDS: Dextrose 5% 0.45% NaCl 1,000 ML IV SCH (09:52)
[2016-10-09] MEDS ORDERED: CeFAZolin 2 Gm/50 mL D5W Duplex Bag IV ONE ×2 (10:27→10:45)
[2016-10-09] MEDS ORDERED: Tranexamic Acid 100 mg/mL 10 mL Inj ONE (10:27)
[2016-10-09] MEDS ORDERED: 0.9% Sodium Chloride 0 ML ONE (10:27)
[2016-10-09] MEDS ORDERED: Bupivacaine Liposome 1.3% 20 mL Inj ONE (10:28)
--- NOTE | 2016-10-09 10:30 | NUR ---
TO OR Report given to CHATA Mckeon. IV saline locked. Dressing placed over his R arm and R knee abrasions. Transported to the OR via a hospital bed.
[2016-10-09] MEDS ORDERED: Tranexamic Acid 100 mg/mL 10 mL Inj IV ONE (10:45)
[2016-10-09] MEDS ORDERED: Vancomycin Inj 1,000 MG in IV Premix 1 EACH IV SCH (10:45)
[2016-10-09] MEDS ORDERED: Lactated Ringer's 1,000 ML IV ONE ×2 (10:45→12:05)
[2016-10-09] MEDS ORDERED: Bupivacaine Liposome 1.3% 20 mL Inj INFILTRATE ONE (10:45)
[2016-10-09] MEDS ORDERED: Bacitracin 50,000 unit Inj IRRIGATION ONE (10:47)
[2016-10-09] MEDS ORDERED: Hip/Knee Infiltration Cocktail INFILTRATE ONE ×7 (10:48)
[2016-10-09] MEDS ORDERED: Lactated Ringer's 500 ML IV PRN (11:49)
[2016-10-09] MEDS ORDERED: Lactated Ringer's 1,000 ML IV SCH (11:49)
--- NOTE | 2016-10-09 11:49 | PCM.HPANE ---
Patient Data Date of Service: Oct 09, 2016 Surgeon Admitting Provider:Josef Schwarz DO Attending Provider:Nicola Erickson MD Primary Care Physician:Uli Delgado MD Other Provider: Reason for Visit Hip Fx Ht/WT & BMI Height (Feet): 6 Height (Inches): 3.00 Weight (Kilograms): 116.400 Body Mass Index 31.91 Allergies Coded Allergies: No Known Drug Allergies (Verified Allergy, Unknown, 03/14/16) Past Anesthesia History Anesthesia History: Denies:: Abnormal Airway, Anesthesia Reactions, Difficult Intubation, Fam Anesthesia Reaction, Fam Malignant Hypertherm, Malignant Hyperthermia Diabetes History Hx Diabetes?: Yes Current Bedside Blood Glucose: 126 MRSA MRSA: No Medications Blood Thinner: Aspirin (Aggrenox) Reported Medications Multivitamin (Once Daily)1 Each Tablet1 Each PO 10/08/16 [Flomax] No Conflict Check Po Daily 10/08/16 Dipyridamole/Aspirin 200-25 mg (Aggrenox 200-25 mg)1 Each Capsule1 Capsule PO DAILY Ref 0 10/08/16 Insul NPH Hu Rec/Ins Rg Hu Rec (Novolin 70/30 U100 Insulin Vial)100 U/1 Ml U25 U SUBQ BID PRN diabetes control #1 VIAL Ref 0 03/14/16 Lovastatin 10 Mg [id number] Mg PO HS #30 TABLET Ref 0 03/14/16 Lisinopril 20 Mg [id number] Mg PO DAILY 30 Days Ref 0 03/14/16 Discontinued Reported Medications Clopidogrel Bisulfate (Plavix)75 Mg [id number] Mg PO DAILY 30 Days Ref 0 03/14/16 History History of ENT Problems?: No HEENT History: Positive for:: Hearing Problem Denies:: Abnormal Airway Difficult Intubation Denture Type: None Teeth Condition: Within Normal Limits Hx of Heart Problems?: Yes (METS > 4, no chest pain) Cardiovascular History: Positive for:: Coronary Artery Disease (angioplasty 19 years ago, asymptomatic since. 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) Hypertension Hx of Respiratory Problem?: No Respiratory History: Denies:: Asthma COPD Chest Surgery Cough Dyspnea Emphysema Hemoptysis Oxygen Administration Pneumonia Pulmonary Embolism Tuberculosis Use of C-PAP Machine Use of Inhalers / NEBS Hx Neurologic Problems?: No Neurological History: Positive for:: CVA (On Aggrenox, previously on Pavix) Hx of GI Problems?: No Hx of Problems?: No Male Hx: Positive for:: Prostate Problems ([place], seed implant 4 yrs ago) Hx Musculoskeletal Problems?: Yes Musculoskeletal History: Positive for:: Back Injury Musculoskeletal Trauma Hx of Psycho/Social Problems?: No Hx Surgeries?: Yes (back, vastectomy,angioplasty,adenoids, umbilical hernia) Hx Any Other Health Problems?: Yes Other History: Positive for:: Cancer (prostate) History Blood Transfusions: Positive for:: Blood Transfuse Reaction Denies:: Blood Transfusions Hx Diabetes: YesBedside Blood Glucose: 126 Hx Alcohol Use: NoHx Substance Use: No Smoking Status: Former Smoker Have You Smoked inLast 12 mo: No Stop/Bang Treated for Sleep Apnea?: No Do You Have a CPAP Machine?: No S-Snoring: Do You Snore Loudly: Yes T-Tired: feel tired, fatigued: No O-Obsered: Observed not breath: No P-Blood Pressure: treated: Yes B- Body Mass Index > 35 kg/m2: No A- Age over 50: Yes N- Neck Large Circumference: Yes G- Gender Male: Yes JUAN Total Score: 4 JUAN Risk Assessment: High Risk, =/>3 Yes JUAN Category 2: Yes Risk Assessment Category Category 1A: Patient has history of documented sleep apnea, and HAS NOT received any narcotic, sedative or anesthesia administration during this stay. Category 1B: Patient has history of documented sleep apnea, and HAS received any narcotic , sedative or anesthesia administration during this stay Category 2: Patient has SUSPECTED Obstructive Sleep Apnea, and HAS received any narcotic , sedative or anesthesia administration during this stay. Category 3: Patient has SUSPECTED Obstructive Sleep Apnea and HAS NOT received narcotic, sedative or anesthesia administration during this stay. Category 4: Outpatient in Procedural Areas with known sleep apnea or who screen positive for High Risk via the STOP/BANG questionnaire. Exam Exam Vital Signs Vital Signs Date Time Temp Pulse Resp B/P Pulse Ox O2 Delivery O2 Flow Rate FiO2 10/09/16 07:57 36.8 67 16 132/74 93 Room Air 10/09/16 05:52 36.7 63 18 144/73 94 Room Air General Appearance: Alert, Oriented X3, Cooperative HEENT/AIRWAY: MP 2, Neck Movement (OK), Mouth Opening (Wide) Lungs: Clear to Auscultation, Normal Air Movement Heart: Regular Rate/Rhythm, Normal S2 Meds/Labs/Diagnostics Admission Meds Current Medications Acetaminophen 975 mg 975 mg ONCE ONCE PO Last administered on 10/08/16 13:37 ; Start 10/08/16 at 13:30; Stop 10/08/16 at 13:31; Status DC Dextrose/Sodium Chloride (D5 1/2 Normal Saline) 1,000 ml @ 100 mls/hr Q10H IV Last administered on 10/09/16 09:52; Start 10/09/16 at 07:55 Bedside Blood Glucose: 126 Labs Test 10/08/16 12:10 10/08/16 19:43 10/09/16 06:37 Neutrophils (%) (Auto) 63.1% (40-74) Lymphocytes (%) (Auto) 20.4% (14-46) Monocytes (%) (Auto) 13.6% (4-12) Eosinophils (%) (Auto) 2.0% (0-5) Basophils (%) (Auto) 0.3% (0-3) Total Bilirubin 0.4mg/dL (0.0-1.2) Aspartate Amino Transf (AST/SGOT) 20U/L (0-50) Alanine Aminotransferase (ALT/SGPT) 16U/L (0-44) Alkaline Phosphatase 75U/L (25-160) Total Protein 7.1g/dL (6.4-8.4) Albumin 4.0g/dL (3.4-5.0) Hemoglobin A1c 6.0% (4.8-5.6) White Blood Count 8.7th/mm3 (3.8-10.1) Red Blood Count 4.49mil/mm3 (4.40-5.80) Hemoglobin 14.0g/dL (13.8-17.2) Hematocrit 42.0% (41.0-50.0) Mean Corpuscular Volume 93.5fL (81-100) Mean Corpuscular Hemoglobin 31.2pg (27.0-35.0) Mean Corpuscular Hemoglobin Concent 33.3% (32.0-37.0) Red Cell Distribution Width 12.5% (12.3-15.4) Platelet Count 121bil/L (150-400) Prothrombin Time 10.6sec (8.1-12.5) Prothromb Time International Ratio 0.99ratio Sodium Level 140mEq/L (134-144) Potassium Level 4.6mEq/L (3.5-5.2) Chloride Level 105mEq/L (97-108) Carbon Dioxide Level 23mmol/L (18-29) Blood Urea Nitrogen 21mg/dL (8-27) Creatinine 1.07mg/dL (0.76-1.27) Estimat Glomerular Filtration Rate 72mL/min (>59) Glucose Level 126mg/dL (60-99) Calcium Level 8.6mg/dL (8.5-10.1) Plan Impression Patient chart reviewed, patient interviewed and anesthestic plan with risks, benefits, and alternatives discussed, and informed consent obtained. NPO per Anesth. Guidelines: Yes ASA Physical Status: ASA3 Severe Disease Anesthetic Plan: GA Bene/Risks/Altern/Consents: Yes HP Complete Prior to Induction: Yes Other Not a SAB candidate due to Aggrenox use yesterday. Discussed risk/benefit of TXA use with surgeon in setting of CVA with anticoagulant use. Will hold on TXA at this time and have platelets available if needed. Crescencio Mckeon MD Oct 09, 2016 10:25
[2016-10-09] MEDS ORDERED: hydrALAZINE 20 mg/mL Inj IVPUSH PRN (11:50)
[2016-10-09] MEDS ORDERED: Dexamethasone 4 mg/mL Inj IVPUSH PRN (11:50)
[2016-10-09] MEDS ORDERED: EPHEDrine Sulfate 50 mg/mL Inj IVPUSH PRN (11:50)
[2016-10-09] MEDS ORDERED: Atropine 0.4 mg/mL Inj IVPUSH PRN (11:50)
[2016-10-09] MEDS ORDERED: Ondansetron 2 mg/mL 2 mL Inj IVPUSH PRN (11:50)
[2016-10-09] MEDS ORDERED: HYDROmorphone 1 mg/mL Inj IVPUSH PRN (11:50)
[2016-10-09] MEDS ORDERED: Labetalol 5 mg/mL 20 mL Inj IV PRN (11:50)
[2016-10-09] MEDS ORDERED: fentaNYL-PF 50 mCg/mL 2 mL Inj IVPUSH PRN (11:50)
[2016-10-09] MEDS ORDERED: MetoCLOpramide 5 mg/mL 2 mL Inj IVPUSH PRN (11:50)
[2016-10-09] MEDS ORDERED: Phenylephrine 10,000 mCg/mL Inj IVPUSH PRN (11:50)
--- NOTE | 2016-10-09 13:02 | PCM.ORTHOP ---
Orthopedic Operative Report Date of Service: Oct 09, 2016 Pre Operative Diagnosis Right displaced femoral neck fracture Post Operative Diagnosis Right displaced femoral neck fracture Procedure Right hip hemiarthroplasty Surgeon Surgeon: Gerardo Mendoza Assistants: Laurie Palma Indication for Procedure Right femoral neck fracture Findings Displaced femoral neck fracture Details of Procedure Implants: Depuy/Synthes [place] cemented size 6 stem and 53 unipolar head component] (standard), 11 cementralizer, +0 tapered spacer Anesthesia: general- GETA Narrative: Ramon Thakur is a 71-year-old male who sustained a right displaced femoral neck fracture. After medical clearance, the risks and benefits of operative intervention were discussed with the patient in great detail including pain, bleeding, infection, damage to neurovascular structures, failure of procedure, need for further procedures, loss of limb function, loss of limb, heart attack, stroke, . The patient wished to proceed with surgery. Verbal and written consent were obtained. Description of Procedure: The patient was taken to the operating room and placed on the operating room in the supine position. SCD and YENNI hoses placed. After time out with nursing, anesthesia, and faculty, the patient then underwent general endotracheal intubation. The patient was then placed in the lateral decubitus position on a peg board with an axillary roll. The right lower extremity was prepped and draped in the standard sterile fashion. A standard posterior Juwan incision was made. The gluteus fascia was incised and the gluteus lizbeth muscle was split in line with its fibers. The capsule was taken along with the external rotators off the femoral neck. The femoral neck fracture was displaced. The femoral head was removed and measured.. Any debris was removed from the joint. There were no degenerative changes noted in the acetabulum. Based on the patient's overall condition, preoperative xrays and poor bone quality, the decision was made to cement the stem. The neck cut was freshened up using the neck cutting guide. The box loader was then used to remove the lateral neck and lateralize the stem. The canal finder was then placed. We broached to a size 6. A trial size 6 stem and 53 head (with neutral neck) were placed which most appropriately fit the patient to allow 30 degrees extension, 90 degrees flexion, 70 degrees internal rotation, and 30 degrees adduction with full stability. The trial components were removed. The wound was irrigated copiously. A bone plug was placed to prevent cement extravasation. Using third generation cementing technique, the cement was pressurized in the canal. A size 6 cemented stem was inserted into the canal and held until the cement had hardened being careful to keep the stem out of varus. Then, the 53 mm head was placed and tamped in place. The hip was reduced and deemed to once again be stable in 30 degrees extension, 90 degrees flexion, 70 degrees internal rotation, and 30 degrees adduction. The capsule and external rotators were closed with #5 Ethibond through bone tunnels on the greater trochanter. The fascia was then tightly closed with 0 Vicryl and subcuticular closure with 2-0 vicryl interrupted suture and 2-0 V-lock monocryl for the skin. Soft dressing with xeroform, 4x4 gauze, ABDs were applied. Abduction pillow placed. There were no complications. EBL was 200 cc. I was present and scrubbed for the entire procedure. The patient was then extubated and taken to PACU in stable condition. SHINGLE BOLT CUTTER SURGEON: During the operation, the services of physician medical or surgical instrument maker were medically indicated and necessary to provide exposure of the operative site for the surgical procedure and to maintain the limb in a proper position to carry out the operation safely and efficiently. Without the qualified assistant professor of criminal justice being present, it would have extended the operative procedure and made the procedure technically more difficult to perform. Weight-bear as tolerated physical therapy. Dressing change in 2days. Keep dressing clean dry and intact. Discharged on current anticoagulation X at least 35 days, [place] and Colace. Keep abduction pillow on at all times when in bed for the next 4 weeks. Follow-up with me n 2 weeks with dressing change with new Steri-Strips. Follow-up with me in 6 weeks until fully mobilized. Please keep the affected extremity elevated when possible. Continue posterior hip cautions. You may use ice and/or heat as needed for comfort. All questions and concerns were addressed with patient/family. Please feel free to call with any further questions, comments, and/or concerns. Grafts, Implants: Implants-See Implant Record Complications There were no periprocedural complications identified. Condition Stable Anesthetic Administered: GA Catheters: None Output, Estimated Blood Loss: 200 Blood Admin during surgery: No Surgical Cast or Splint: Other Surgical Specimen Removed: No Specimen sent to Pathology: No copies to: Sheu,Gerardo Leon MD, MD Oct 09, 2016 13:02
[2016-10-09] MEDS ORDERED: HYDROcodone-APAP 5-325 mg Tablet PO PRN (13:25)
--- NOTE | 2016-10-09 14:09 | PCM.PNMED ---
Subjective Date of Service Oct 09, 2016 Subjective Pain controlled. Awaiting surgery. Exam Vital Signs Vital Sign - Last Date Time Temp Pulse Resp B/P Pulse Ox O2 Delivery O2 Flow Rate FiO2 10/09/16 13:40 36.1 80 13 129/55 94 Nasal Cannula 3 Intake and Output 10/08/16 10/08/16 10/09/16 Cumulative From/Thru 15:00 23:00 07:00 10/08/16 11:57 - 10/08/16 17:50 Intake Total 240 ml 240 ml Output Total 0 ml 0 ml Balance 240 ml 240 ml Intake Oral 240 ml 240 ml Output Urine Total 0 ml 0 ml # Bowel Movements 0 0 Exam General: Elderly gentleman lying in bed and in no acute distress while lying still, he is in severe distress when right leg is moved, well-developed, well- nourished, appropriately interactive HEENT: Normocephalic, atraumatic. External ears without defect. Pupils equal, round, and reactive to light and accommodation. Anicteric sclerae, moist conjunctivae, and no lid lag. Oropharynx free of erythema and cobble stoning with moist mucosa. Neck: Supple with full range of motion. No jugular venous distension. No bruits. No lymphadenopathy or thyromegaly. Cardiovascular: Regular rate and rhythm with no murmurs, rubs, or gallops appreciated Pulmonary: Clear to auscultation bilaterally with no crackles, wheezes, or rhonchi. Normal respiratory effort with no use of accessory muscles. Abdomen: Bowel tones present. Soft, nontender, nondistended. No hepatosplenomegaly or masses appreciated. Extremities: No clubbing, cyanosis, edema, or lymphadenopathy appreciated. Right lower extremity moderate to severely tender to movement. Skin: Normal temperature, turgor, and texture; no rash, ulcers, or subcutaneous nodules appreciated. Neurological: Cranial nerves grossly intact. Normal muscle strength, tone, and bulk. Reflexes, coordination, and sensory function within normal limits. No known gait impairment. Psychiatric: Normal mood and affect. Alert and oriented to person, place, and time. IVs and Medications Medications Reviewed: Medications were reviewed in detail Lab and Diagnostics Result Diagram: 10/09/16 0637 10/09/16 0637 X-Rays, CTs and MRIs CT HIP RIGHT W/O CONTRAST IMPRESSION: 1. Angulated, displaced right femoral neck fracture as above. No other fracture or dislocation. 2. L5-S1 spondylolysis and trace spondylolisthesis. Approved by: Megan Curtis M.D. on 10/08/2016 at 14:48 Assessment & Plan Mr. Ramon Thakur is a very pleasant 71 year old gentleman with a history prostate cancer, [place] 2001, TIA 2009, hypertension, IDDM, hyperlipidemia, who presents to the [facility] Emergency Department due to right hip pain after ground level fall. CT hip show non displaced right femoral neck fracture. Orthopedic surgeon planning for right hemiarthroplasty tomorrow. Acute Non-displaced Femoral neck fracture, right sided, 2nd to ground level fall. Present on admission. Active. - On a normal day, patient can negotiate 2 flights of stars without difficulty or chest pain/pressure. Medically optimized for surgery. - CT hip as above. - Orthopedic surgery consulted. - Holding antiplatelets/SQ Heparin. - IV Morphine for severe pain PRN. - NPO after midnight for Right Hemiarthroplasty. Chronic conditions: Insulin Using Diabetes Mellitus - 70/30 Novolin 25U BID at home, will use Humulin substitute here. lower dose from 25 units twice a day to 18 units bid given perioperative npo and blood glucose in the 120s - HA1c ordered. Hypertension - Continue home Lisinopril 20 mg daily. History of CVA - On Aggrenox at home, holding for surgery. - Continue home Lovastatin 10 Mg HS. History of [place], no stents, 2001. - On Aggrenox at home, holding for surgery. History of Prostate Cancer, radiation therapy, Ongoing. - Continue Flomax Acetaminophen for mild pain when necessary. Bowel regimen Senna and MiraLAX scheduled and PRN. Zofran when necessary for nausea and vomiting. SubQ heparin held for now. SCDs in place. High-risk medications: IV Morphine Patient Status: Patient is admitted under inpatient status with expected length of stay greater than 2 midnights due to severity of presenting symptoms, risk of adverse event, and complexity of treatment plan. VTE Mechanical Devices: Intermittant Pneumatic CD Resuscitation Status: CPR: Attempt Resuscitation Nicola Erickson MD Oct 09, 2016 14:08
--- NOTE | 2016-10-09 14:30 | DRSVH ---
PROCEDURE: X-RAY PELVIS W/LAT HIP (RT) ([id number]) INDICATIONS: s/p bipolar hip TECHNIQUE: AP pelvis with lateral view(s) of the right hip(s). COMPARISON: [facility], CR, XR PELVIS 1 OR 2VW, 10/09/2016, 11:49. [facility], CR, XR PELVIS W LATERAL HIP RT, 10/08/2016, 12:19. FINDINGS: Bones: The there is right hip arthroplasty with prosthesis in anatomic alignment. No fractures or di slocations. Pelvic ring appears intact. No suspicious bony lesions. Bilateral sacroiliac joint deg eneration. Soft tissues: The visualized bowel gas pattern is normal. Vascular calcifications consistent with at herosclerosis. Metallic implants in prostate. IMPRESSION: Right hip prosthesis in anatomic alignment. Dictated by: Erich Pro M.D. on 10/09/2016 at 14:27 Approved by: Erich Pro M.D. on 10/09/2016 at 14:29
[2016-10-09] MEDS ORDERED: Glucose 40% Oral Gel 15 Gm Tube PO PRN ×2 (14:35→15:10)
--- NOTE | 2016-10-09 14:45 | PCM.ANEP1 ---
Post Anesthesia PACU Phase 1 Assessment Date of Service: Oct 09, 2016 Vital Signs Vital Signs Date Time Temp Pulse Resp B/P Pulse Ox O2 Delivery O2 Flow Rate FiO2 10/09/16 14:25 Supplement Oxygen 10/09/16 14:25 36.6 83 16 128/67 94 Nasal Cannula 4.00 10/09/16 14:00 83 15 105/49 94 Nasal Cannula 3 10/09/16 13:50 84 12 126/58 93 Nasal Cannula 3 10/09/16 13:40 36.1 80 13 129/55 94 Nasal Cannula 3 10/09/16 13:35 77 18 128/56 94 Nasal Cannula 3 10/09/16 13:30 70 11 117/66 95 Nasal Cannula 3 10/09/16 13:25 79 17 98 Simple Mask 8 10/09/16 13:20 79 16 123/57 94 Simple Mask 8 10/09/16 13:15 78 21 125/56 98 Simple Mask 8 10/09/16 13:10 36.6 80 12 122/54 97 Simple Mask 8 10/09/16 07:57 36.8 67 16 132/74 93 Room Air Anesthetic Administered: GA Level of Alertness: Sleepy, easy to arouse RIDDLE's with Equal Strength: Yes Pain: No Nausea or Vomiting: No CV Function & Hydration Stable: Yes Airway Device: Oxygen Delivery: Simple Mask Lungs: Normal Air Movement Dermatome Level: Full Sensation PACU Phase 2 Assessment Complications: Yes Follow up Care: N/A Patient Instructions Provided: N/A Crescencio Mckeon MD Oct 09, 2016 14:45
[2016-10-09 14:46] LABS: APPEARANCE,URINE HAZY (CLEAR,HAZY); COLOR,URINE YELLOW (YELLOW); OCCULT BLOOD,URINE NEGATIVE (NEGATIVE); UROBILINOGEN,URINE NORMAL (NORMAL)
[2016-10-09] MEDS ORDERED: Dextrose 10% 250 ML IV PRN (14:55)
--- NOTE | 2016-10-09 15:00 | NUR ---
POST-OP Received from PACU via a hospital bed. On O2 at 3 LPM via NC. Placed on a continuous PO2. IVF ongoing. Dressing in his R hip is CDI. Jayy hose is in place. Abductor pillow in place. IFC intact and draining to gila colored UO. Oriented to room and call light.
--- NOTE | 2016-10-09 15:43 | DRSVH ---
PROCEDURE: X-RAY PELVIS ONE OR TWO VIEWS ([id number]) INDICATIONS: INTRAOPERATIVE IMAGING FOR RIGHT TOTAL HIP TECHNIQUE: Intra-operative view of the pelvis and hip acquired. COMPARISON: None. FINDINGS: Bones: Intraoperative devices prior to placement of arthroplasty prostheses are in expected position s. No fractures or suspicious bony lesions. Soft tissues: Overlying surgical retractors are present, along with other intraoperative changes. IMPRESSION: Single intraoperative image of right total hip replacement placement. Dictated by: Tim Haywood M.D. on 10/09/2016 at 15:41 Approved by: Tim Haywood M.D. on 10/09/2016 at 15:42
[2016-10-09] MEDS: Sodium Chloride LOK Flush 10 mL Syringe IV SCH (16:30)
--- NOTE | 2016-10-09 17:10 | NUR ---
Social Work- Initial Assessment/ Multidisciplinary Rounds Data: See Initial Assessment and Advance Directive Intervention for additional information. Pt discussed in rounds. Pt to OR today. Pt is not ready for discharge at this time. Pt is a 71 year old admitted for hip fracture after tripping over a parking block per H&P. Pt's insurance is [employer]. Patient Access contact, pt is 100 % service connected. [facility] will be important for discharge needs. Pt's PCP is Uli Delgado MD. Pt's readmit risk score is not listed at this time. SW met with pt, pt's friend Lavinia, and pt's HAN Ambrocio at bedside regarding discharge plan, SW role explained. Pt alert and oriented x3. Pt's capacity for self-care assessed. Pt resides in [place] alone. Pt is independent with ADLs and self-care. Pt uses a cane and walker at baseline. Pt drives. Pt has no history with HH services. Pt has no history with SNF services. Pt has no DPOA on file and SW requested that pt bring in copy of DPOA. Pt reports that his son Ronal Thakur would be DPOA. SW provided Discharge planning Checklist and requested that pt contact [facility] [employer] if needs identified. SW provided phone number and plan on whiteboard. No d/c orders have been received at this time. SW will continue to follow. Assessment: Pt who is independent at baseline and capable of self-care Plan: SW will continue to follow for d/c planning needs, pt is likely to need SNF at discharge. RACHANA Odom Addendum: 10/09/16 at 1714 by CAROLYN PIPER Amended: Links added.
[2016-10-09] MEDS ORDERED: Insulin LISPRO 300 Unit/3 mL Inj SUBQ SCH (17:30)
[2016-10-09] MEDS: CeFAZolin Inj 2 GM in IV Premix 1 EACH IV SCH (17:51)
[2016-10-09] MEDS: Insulin LISPRO 300 Unit/3 mL Inj SUBQ SCH ×2 (18:33→22:00)
[2016-10-09] MEDS ORDERED: GABA-502 PO (18:37)
[2016-10-10] MEDS: Sodium Chloride LOK Flush 10 mL Syringe IV SCH ×3 (00:30→16:30)
[2016-10-10] MEDS: CeFAZolin Inj 2 GM in IV Premix 1 EACH IV SCH (00:47)
[2016-10-10] MEDS: Dextrose 5% 0.45% NaCl 1,000 ML IV SCH (03:15)
[2016-10-10] MEDS ORDERED: Bupivacaine Liposome 1.3% 20 mL Inj INFILTRATE ONE (06:00)
[2016-10-10] MEDS: HYDROmorphone 1 mg/mL Inj IVPUSH PRN (06:01)
[2016-10-10 06:10] VITALS: BP 116/69; PULSE 98; RESP 18; O2SAT 93
[2016-10-10 06:16] LABS: BASOPHILS % (AUTO) 0.2 % (0-3); EOSINOPHILS % (AUTO) 1.8 % (0-5); MONOCYTES % (AUTO) 12.8 % (4-12); Mean Corpuscular Hemoglobin 31.3 pg (27.0-35.0); Mean Corpuscular Volume 94.3 fL (81-100); NEUTROPHILS % (AUTO) 75.5 % (40-74); Platelet Count 102 bil/L (150-400)
--- NOTE | 2016-10-10 07:37 | NUR ---
Activity Pt on 3-4L NC over night to keep sats above 92%. Had to re-insert NC into nares several times over shift, monitored by CPOX. Pt had c/o pain 6 to 7 out of 10 and requested IV pain meds stating "they help better". Gave pt IV Dilaudid and discussed the nee to eventually move to PO pain meds, which pt verbalized understanding. No nausea pt per. Wedge in place over night between lower extremities, bedrest until works with PT this morning. Dressing to right hip is C/D/I.
[2016-10-10 09:42] VITALS: BP 128/65; PULSE 102; RESP 18; O2SAT 96
--- NOTE | 2016-10-10 10:39 | PCM.PNORTH ---
Subjective Date of Service: Oct 10, 2016 Visit Information: Reason for Visit Hip Fx Surgery/Surgery Date R HIP HEMIARTHROPLASTY 10/09/16 Post-Op Day # Date of Admission: Oct 08, 2016 at 14:59 Hospital Day # Subjective Found patient awake and alert sitting up in bed. No complaints of pain at this time. Patient is well-positioned supine in bed with abduction wedge in place. We will send abduction wedge strap at right calf area to relieve any pressure at the peroneal nerve. Patient advises that he had a pre-existing neuropathy in his feet and has decreased sensation. He does indicate that he can feel me touch his toes but he has very little movement at the foot with just some very slight toe movement. We have discussed discharged likely to assisted facility and patient is agreeable to this. Postop General: No Complaints, No Shortness of Breath, No Chest Pain Pain Management: IV Push Objective Exam Objective Alert and oriented 3 and pleasant Interoperative dressing clean dry and intact Toe wiggle minimal at right lower extremity possibly per baseline by patient's report. He reports a chronic neuropathy but is unaware of what causes this. Patient indicates he does have sensation in his right toes and can feel me touching them. Calf and thigh are soft and nontender Abduction wedge is in place Bilateral thigh-high YENNI hose are in place SCDs are absent Aleman is in place and working No gait yet with physical therapy as of this note Vital Signs and I/O Vital Sign - Last Date Time Temp Pulse Resp B/P Pulse Ox O2 Delivery O2 Flow Rate FiO2 10/10/16 09:42 36.9 102 18 128/65 96 Nasal Cannula 4.00 Intake and Output 10/09/16 10/09/16 10/10/16 Cumulative From/Thru 15:00 23:00 07:00 10/08/16 11:57 - 10/10/16 06:34 Intake Total 1850 ml 200 ml 200 ml 2490 ml Output Total 1250 ml 350 ml 450 ml 2050 ml Balance 600 ml -150 ml -250 ml 440 ml Intake Oral 0 ml 200 ml 200 ml 640 ml IV Total 1850 ml 1850 ml Output Urine Total 850 ml 350 ml 450 ml 1650 ml Estimated Blood Loss 400 ml 400 ml # Bowel Movements 0 0 0 Lab & Micro Results Laboratory Tests Test 10/09/16 14:10 10/10/16 05:30 Urine Color Yellow (YELLOW) Urine Appearance Hazy (CLEAR,HAZY) Urine pH 6.0 (5.0-8.0) Urine Specific [place] 1.020 (1.003-1.035) Urine Protein Negativemg/dL (NEG,TRACE) Urine Glucose (UA) Negativemg/dL (NEGATIVE) Urine Ketones Negativemg/dL (NEGATIVE) Urine Occult Blood Negative (NEGATIVE) Urine Nitrite Negative (NEGATIVE) Urine Bilirubin Negative (NEGATIVE) Urine Urobilinogen Normalmg/dL (NORMAL) Urine Leukocyte Esterase Negative (NEGATIVE) Urine RBC 0-2/hpf (0-2) Urine WBC 0-5/hpf (0-5) Urine Epithelial Cells Occasional/hpf (NONE-MOD) Urine Crystals None seen (NONE SEEN) Urine Bacteria None/hpf (NONE-FEW) Urine Hyaline Casts None/lpf (NONE) Urine Granular Casts None seen (NONE SEEN) Urine Waxy Casts None seen (NONE SEEN) Urine Red Blood Cell Casts None seen (NONE SEEN) Urine White Blood Cell Casts None seen (NONE SEEN) Urine Mucus None seen (None Seen) Urine Trichomonas None seen (NONE SEEN) Urine Yeast None (NONE SEEN) Urinalysis Comment None Urine Culture Reflexed Not indicated White Blood Count 8.4th/mm3 (3.8-10.1) Red Blood Count 3.68mil/mm3 (4.40-5.80) Hemoglobin 11.5g/dL (13.8-17.2) Hematocrit 34.7% (41.0-50.0) Mean Corpuscular Volume 94.3fL (81-100) Mean Corpuscular Hemoglobin 31.3pg (27.0-35.0) Mean Corpuscular Hemoglobin Concent 33.1% (32.0-37.0) Red Cell Distribution Width 12.7% (12.3-15.4) Platelet Count 102bil/L (150-400) Neutrophils (%) (Auto) 75.5% (40-74) Lymphocytes (%) (Auto) 9.3% (14-46) Monocytes (%) (Auto) 12.8% (4-12) Eosinophils (%) (Auto) 1.8% (0-5) Basophils (%) (Auto) 0.2% (0-3) Result Diagram: 10/10/16 0530 10/09/16 0637 General Appearance: Alert, Oriented X3, Cooperative, No Acute Distress Extremities: No Compartment Syndrom Noted, Thigh & Calf Soft/Nontender Postop Sensory Motor: Distal Motor Intact, Movement in Toes, Distal Sensation Intact Activity: Activity per PT, Ambulate with PT (weightbearing as tolerated on the right lower extremity using front wheeled walker.) Catheters: Urethral 2 Way Aleman Assessment & Plan Impression Patient is a 71-year-old male who has suffered a right hip fracture and undergone a right hip hemiarthroplasty on 10/09/[address] Gerardo Mendoza. Problems: Plan Postop day #1 from right hip hemiarthroplasty performed on 10/09/[address] Gerardo Mendoza Weightbearing as tolerated on the right lower extremity using front wheeled walker. Posterior hip precautions in place. Use abduction wedge while in bed 4 weeks postop. Continue formal physical therapy for mobility, gait and safety. Continue by mouth pain medication in the form of [place] as ordered. Continue Xarelto 10 mg 35 days postop for DVT prophylaxis. Interoperative dressing will be changed on postoperative day #2 Nursing DC Aleman postop day #1 Nursing please maintain left lower extremity SCD Nursing please move patient to by mouth pain medication as soon as possible. Follow-up in 2 weeks at [facility] orthopedic clinic with Dr. Gerardo Mendoza for suture removal and Steri-Strips Follow-up in 6 weeks at [facility] orthopedic clinic with Dr. Gerardo Mendoza with AP pelvis and right crosstable lateral hip x-ray on arrival Orthopedics thanks hospitalist service for their help in the medical management of this patient. Anticipate discharge to assisted facility by hospitalist service on postop day #3 if patient is medically stable to do so. VTE Prophylaxis: SCDs (left lower extremity SCD), YENNI Hose (bilateral thigh- high YENNI hose), Other (Xarelto 10 mg daily 35 days postop for DVT prophylaxis) Resuscitation Status: CPR: Attempt Resuscitation Saroj Wang PA-C Oct 10, 2016 10:39
[2016-10-10] MEDS: Dipyridamole-Aspirin 200-25 mg ER12 Capsule PO SCH (11:41)
[2016-10-10] MEDS: Insulin LISPRO 300 Unit/3 mL Inj SUBQ SCH ×4 (11:50→21:12)
[2016-10-10] MEDS: Insulin Human NPH-Reg 70-30 100 Unit/mL 3 mL Pen SUBQ SCH ×2 (11:50→22:42)
[2016-10-10 12:31] VITALS: BP 124/65; PULSE 97; RESP 18; O2SAT 92
--- NOTE | 2016-10-10 13:50 | NUR ---
Evaluation completed. Please go to "Notes" then click on "Assessments and Notes" (bottom left corner of screen). Then select appropriate discipline tab on top of screen.
--- NOTE | 2016-10-10 14:13 | PCM.PNMED ---
Subjective Date of Service Oct 10, 2016 Subjective POD 1 , pain controlled Exam Vital Signs Vital Sign - Last Date Time Temp Pulse Resp B/P Pulse Ox O2 Delivery O2 Flow Rate FiO2 10/10/16 12:31 37.4 97 18 124/65 92 Nasal Cannula 4.00 Intake and Output 10/09/16 10/09/16 10/10/16 Cumulative From/Thru 15:00 23:00 07:00 10/08/16 11:57 - 10/10/16 06:34 Intake Total 1850 ml 200 ml 200 ml 2490 ml Output Total 1250 ml 350 ml 450 ml 2050 ml Balance 600 ml -150 ml -250 ml 440 ml Intake Oral 0 ml 200 ml 200 ml 640 ml IV Total 1850 ml 1850 ml Output Urine Total 850 ml 350 ml 450 ml 1650 ml Estimated Blood Loss 400 ml 400 ml # Bowel Movements 0 0 0 Exam General: Elderly gentleman lying in bed and in no acute distress HEENT: Normocephalic, atraumatic. External ears without defect. Pupils equal, round, and reactive to light and accommodation. Cardiovascular: Regular rate and rhythm with no murmurs, rubs, or gallops appreciated Pulmonary: Clear to auscultation bilaterally with no crackles, wheezes, or rhonchi. Normal respiratory effort with no use of accessory muscles. Abdomen: Bowel tones present. Soft, nontender, nondistended. No hepatosplenomegaly or masses appreciated. Extremities: No clubbing, cyanosis, edema, or lymphadenopathy appreciated. Right hip dressing C/D/I Skin: Normal temperature, turgor, and texture; no rash, ulcers, or subcutaneous nodules appreciated. Neurological: Cranial nerves grossly intact. Normal muscle strength, tone, and bulk. Reflexes, coordination, and sensory function within normal limits. No known gait impairment. Psychiatric: Normal mood and affect. Alert and oriented to person, place, and time. IVs and Medications Medications Reviewed: Medications were reviewed in detail Lab and Diagnostics Result Diagram: 10/10/16 0530 10/09/16 0637 X-Rays, CTs and MRIs CT HIP RIGHT W/O CONTRAST IMPRESSION: 1. Angulated, displaced right femoral neck fracture as above. No other fracture or dislocation. 2. L5-S1 spondylolysis and trace spondylolisthesis. Approved by: Megan Curtis M.D. on 10/08/2016 at 14:48 Assessment & Plan Mr. Ramon Blaze is a very pleasant 71 year old gentleman with a history prostate cancer, [place] 2001, TIA 2009, hypertension, IDDM, hyperlipidemia, who presents to the [facility] Emergency Department due to right hip pain after ground level fall. CT hip show non displaced right femoral neck fracture. Orthopedic surgeon planning for right hemiarthroplasty tomorrow. Acute Non-displaced Femoral neck fracture, right sided, 2nd to ground level fall. Present on admission. Active. -s/p Right hip hemiarthroplasty 10/09/16 - IV Morphine for severe pain PRN. -DVT prophylaxis xarelto 10 mg by mouth daily 35 -PT eval Chronic conditions: Insulin Using Diabetes Mellitus - 70/30 Novolin 25U BID at home, will use Humulin substitute here. lower dose from 25 units twice a day to 18 units bid glucose in the 120s - HA1c ordered. Hypertension - Continue home Lisinopril 20 mg daily. History of CVA - On Aggrenox at home, holding for surgery. - Continue home Lovastatin 10 Mg HS. History of [place], no stents, 2001. - On Aggrenox at home, holding for surgery. History of Prostate Cancer, radiation therapy, Ongoing. - Continue Flomax Acetaminophen for mild pain when necessary. Bowel regimen Senna and MiraLAX scheduled and PRN. Zofran when necessary for nausea and vomiting. SubQ heparin held for now. SCDs in place. High-risk medications: IV Morphine Patient Status: Patient is admitted under inpatient status with expected length of stay greater than 2 midnights due to severity of presenting symptoms, risk of adverse event, and complexity of treatment plan. Disposition: Possible discharge to SNF 1-2 days VTE Prophylaxis: SCDs (left lower extremity SCD), YENNI Hose (bilateral thigh- high YENNI hose), Other (Xarelto 10 mg daily 35 days postop for DVT prophylaxis) VTE Mechanical Devices: Intermittant Pneumatic CD Resuscitation Status: CPR: Attempt Resuscitation Nicola Erickson MD Oct 10, 2016 14:12
--- NOTE | 2016-10-10 17:24 | NUR ---
Social Work- Continued D/C Planning Data: EMR reviewed. Pt discussed in rounds. Pt will need SNF at d/c. SNF orders received this afternoon. SW confirmed with registration that pt has [facility]. SW met with pt at bedside regarding SNF. SNF recommendation explained and pt is agreeable. Pt requested time to look over SNF choice list and SCALPER OPERATOR will follow up with pt tomorrow morning about SNF choice. Paperwork in pt's chart. PASRR in folder. SW will continue to follow. Assessment: Pt for whom SNF is medically necessary Plan: Pt to d/c to SNF, SW to follow up regarding SNF choice tomorrow morning. Paperwork in pt's chart. PASRR in folder. Annabella Hall MSW
--- NOTE | 2016-10-10 17:43 | NUR ---
SNF CHOICE LIST PROVIDED
--- NOTE | 2016-10-10 18:38 | NUR ---
Sedation/mobility/sensation Patient fairly sedate upon initial assessment but has been alert and awake since then. Patient with poor mobility needed quite a bit of help to get to side of bed and unable or stable to stand. Patient is having severe decreased sensation to right lower ext since surgery. Patient is unable to lift right leg can wiggle foot some . Dr bashir. Patient medicated for pain this afternoon with po pain med.
[2016-10-10 20:40] VITALS: BP 129/68; PULSE 98; RESP 20; O2SAT 91
[2016-10-10] MEDS: HYDROmorphone 0.5 mg/0.5 mL iSecure Syringe IVPUSH PRN (21:28)
[2016-10-11] MEDS: Sodium Chloride LOK Flush 10 mL Syringe IV SCH ×4 (01:10→21:34)
[2016-10-11] MEDS: HYDROmorphone 0.5 mg/0.5 mL iSecure Syringe IVPUSH PRN (05:02)
[2016-10-11 05:53] VITALS: BP 100/61; PULSE 82; RESP 18; O2SAT 92
--- NOTE | 2016-10-11 07:41 | NUR ---
Activity/pain Pt refused PO pain meds last night stating "they did not help." IV Dilaudid given twice, pt able to sleep. Pt continues to have severe muscle weakness to bilateral lower extremities, MD aware. PT ordered to work with pt again this a.m. FC still in place. Pt's right arm is noticeably more red and swollen compared to left hand. Cap refill 1-2 seconds, equal muscle strength to upper extremities/hands. Bulky dressing to right hip/thigh C/D/I, wedge spacer in place over night between lower extremities. Continue cares to increase mobility and strength to extremities.
[2016-10-11] MEDS: Insulin LISPRO 300 Unit/3 mL Inj SUBQ SCH ×4 (08:00→21:31)
--- NOTE | 2016-10-11 08:37 | PCM.PNORTH ---
Subjective Date of Service: Oct 11, 2016 Visit Information: Reason for Visit Hip Fx Surgery/Surgery Date R HIP HEMIARTHROPLASTY 10/09/16 Post-Op Day # Date of Admission: Oct 08, 2016 at 14:59 Hospital Day # Subjective Found patient with head of bed raised and sleeping. Easily awakened. No complaints of pain at this time. Patient has his abduction wedge in place at this time. Patient is very hard of hearing and I help him find his hearing aids which were lost in his bed this morning and with these in place he has difficulty hearing. Patient does complain again this morning of some dysfunction at the right foot and some sensation of anesthesia which he states is under at baseline secondary to a neuropathy. Patient is diabetic but is not fully aware of whether this is what is causing his baseline neuropathy in his feet bilaterally. I have advised patient that he will likely discharge to [facility] facility today or tomorrow and he is aware of this and agreeable. Patient states this morning that he was unable to arise from the bed yesterday with physical therapy and therefore was unable to perform gait. Physical therapy notes he did perform gait less than 10 feet yesterday so patient may have some discrepancy in his memory. Postop General: No Shortness of Breath, No Chest Pain Pain Management: PO, IV Push Objective Exam Objective Alert and pleasant. Difficulty in hearing with bilateral hearing aids. Interoperative dressing is clean dry and intact and this is changed this morning to postop island-type dressing. Surgical wound is in good condition. Calf and thigh are soft and nontender. Toe wiggle is minimal at right lower extremity and there is no active ankle motion at the right lower extremity on examination and prompting.. Patient describes baseline neuropathy likely secondary to diabetes and his feet bilaterally with some sensation loss. Hip abduction wedge is in place and straps about the right calf are loosened. Aleman remains in place and working. Bilateral YENNI hose are in place. SCDs are absent Gait times less than 10 feet with physical therapy on 10/10/2016 with recommendation for discharge to [facility] facility. Vital Signs and I/O Vital Sign - Last Date Time Temp Pulse Resp B/P Pulse Ox O2 Delivery O2 Flow Rate FiO2 10/11/16 05:53 36.8 82 18 100/61 92 Nasal Cannula 3.50 Intake and Output 10/10/16 10/10/16 10/11/16 Cumulative From/Thru 15:00 23:00 07:00 10/08/16 11:57 - 10/11/16 05:53 Intake Total 1263 ml 1236 ml 600 ml 5589 ml Output Total 800 ml 550 ml 3400 ml Balance 1263 ml 436 ml 50 ml 2189 ml Intake Oral 1236 ml 600 ml 2476 ml IV Total 1263 ml 3113 ml Output Urine Total 800 ml 550 ml 3000 ml Estimated Blood Loss 400 ml # Bowel Movements 0 0 Result Diagram: 10/10/16 0530 10/09/16 0637 General Appearance: Alert, Oriented X3, Cooperative, No Acute Distress Extremities: No Compartment Syndrom Noted, Thigh & Calf Soft/Nontender Postop Sensory Motor: Movement in Toes (movement at the right toes is minimal) , Decreased Sensation (I patient's report he has a chronic baseline neuropathy at the lower extremities bilaterally and reports today that his right foot has reduced sensation and he states that he is unable to move his foot.) Activity: Activity per PT, Ambulate with PT (weightbearing as tolerated on the right lower extremity using front wheeled walker.) Catheters: Urethral 2 Way Aleman Assessment & Plan Impression Patient is a 71-year-old male who is postop day 2 from a right hip hemiarthroplasty performed on 10/09/[address] Gerardo Mendoza. Patient has participated minimally with physical therapy at this time. Patient is very deaf and difficult to communicate with me does not have his hearing aids in place. Patient has complained at yesterday's rounding and again today that he has some dysfunction in his right foot and he is unclear about his sensation. Per the patient's report he has some chronic "neuropathy" at his lower extremities but he was unable to tell me from what source. The patient is diabetic and I am assuming his baseline neuropathy is secondary to this. On examination this morning patient can wiggle his toes minimally but on prompting is unable to dorsiflex his foot. He does have some sensation of the foot but apparently this is impaired by his report and it is difficult to determine from questioning the patient whether this is new or chronic. Problems: Plan Postop day #2 from right hip hemiarthroplasty performed on 10/09/[address] Gerardo Mendoza Weightbearing as tolerated on the right lower extremity using front wheeled walker. Posterior hip precautions in place. Use abduction wedge while in bed 4 weeks postop. Continue formal physical therapy for mobility, gait and safety. Continue by mouth pain medication in the form of [place] as ordered. Continue Xarelto 10 mg 35 days postop for DVT prophylaxis. Interoperative dressing is changed today and wound is in good condition. Patient has complained at yesterday's rounding and again today that he has some dysfunction in his right foot and he is unclear about his sensation. Patient's abduction wedge lower strap was loosened yesterday to ensure reduced impingement at the peroneal nerve. Per the patient's report he has some chronic "neuropathy" at his lower extremities but he was unable to tell me from what source. The patient is diabetic and I am assuming his baseline neuropathy is secondary to this. On examination this morning patient can wiggle his toes minimally but on prompting is unable to dorsiflex his foot. He does have some sensation of the foot but apparently this is impaired by his report and it is difficult to determine from questioning the patient whether this is new or chronic. The lower leg strap at his abduction wedge on the right side was checked again this morning and found to be satisfactorily loose. Nursing CARMEN Aleman today on postoperative day #2 Nursing please maintain left lower extremity SCD Nursing please discontinue IV pain medications move patient to by mouth pain medication as soon as possible today on postoperative day #2. Follow-up in 2 weeks at [facility] orthopedic clinic with Dr. Gerardo Mendoza for suture removal and Steri-Strips Follow-up in 6 weeks at [facility] orthopedic clinic with Dr. Gerardo Mendoza with AP pelvis and right crosstable lateral hip x-ray on arrival Orthopedics thanks hospitalist service for their help in the medical management of this patient. From orthopedic standpoint patient may discharge by hospitalist service at any time if he is determined to be medically stable. Anticipate discharge to [facility] facility by hospitalist service on postop day #2 or #3 if patient is medically stable to do so. Pt and examined today, he reports that he now is able to move his ankle, foot and toes and that his numbness has resolved back to his baseline. incision c/d/i , no wound hematoma noted. he does NOT need an AFO. DVT prophylaxis, dispo planning pending- likely SNF VTE Prophylaxis: SCDs (left lower extremity SCD), YENNI Hose (bilateral thigh- high YENNI hose), Other (Xarelto 10 mg daily 35 days postop for DVT prophylaxis) Resuscitation Status: CPR: Attempt Resuscitation Saroj Wang PA-C Oct 11, 2016 08:37 Gerardo Mendoza MD Oct 11, 2016 13:49
[2016-10-11 09:49] VITALS: BP 115/65; PULSE 88; RESP 18; O2SAT 95
[2016-10-11] MEDS: Dipyridamole-Aspirin 200-25 mg ER12 Capsule PO SCH (10:20)
[2016-10-11] MEDS: oxyCODONE-Acetamin 5-325 mg Tablet PO PRN ×2 (10:21→21:28)
[2016-10-11] MEDS: Insulin Human NPH-Reg 70-30 100 Unit/mL 3 mL Pen SUBQ SCH ×2 (10:22→21:29)
[2016-10-11 13:05] VITALS: BP 101/60; PULSE 98; RESP 16; O2SAT 92
--- NOTE | 2016-10-11 14:15 | PCM.PNMED ---
Subjective Date of Service Oct 11, 2016 Subjective pain controlled, continues to have neuropathy pain on both legs. No new pain. Exam Vital Signs Vital Sign - Last Date Time Temp Pulse Resp B/P Pulse Ox O2 Delivery O2 Flow Rate FiO2 10/11/16 13:05 38.3 98 16 101/60 92 Nasal Cannula 3.50 Intake and Output 10/10/16 10/10/16 10/11/16 Cumulative From/Thru 15:00 23:00 07:00 10/08/16 11:57 - 10/11/16 05:53 Intake Total 1263 ml 1236 ml 600 ml 5589 ml Output Total 800 ml 550 ml 3400 ml Balance 1263 ml 436 ml 50 ml 2189 ml Intake Oral 1236 ml 600 ml 2476 ml IV Total 1263 ml 3113 ml Output Urine Total 800 ml 550 ml 3000 ml Estimated Blood Loss 400 ml # Bowel Movements 0 0 Exam General: Elderly gentleman lying in bed and in no acute distress HEENT: Normocephalic, atraumatic. External ears without defect. Pupils equal, round, and reactive to light and accommodation. Cardiovascular: Regular rate and rhythm with no murmurs, rubs, or gallops appreciated Pulmonary: Clear to auscultation bilaterally with no crackles, wheezes, or rhonchi. Normal respiratory effort with no use of accessory muscles. Abdomen: Bowel tones present. Soft, nontender, nondistended. No hepatosplenomegaly or masses appreciated. Extremities: No clubbing, cyanosis, edema, or lymphadenopathy appreciated. Right hip dressing C/D/I Skin: Normal temperature, turgor, and texture; no rash, ulcers, or subcutaneous nodules appreciated. Neurological: Cranial nerves grossly intact. Normal muscle strength, tone, and bulk. Reflexes, coordination, and sensory function within normal limits. No known gait impairment. Psychiatric: Normal mood and affect. Alert and oriented to person, place, and time. IVs and Medications Medications Reviewed: Medications were reviewed in detail Lab and Diagnostics Result Diagram: 10/10/16 0530 10/09/16 0637 X-Rays, CTs and MRIs CT HIP RIGHT W/O CONTRAST IMPRESSION: 1. Angulated, displaced right femoral neck fracture as above. No other fracture or dislocation. 2. L5-S1 spondylolysis and trace spondylolisthesis. Approved by: Megan Curtis M.D. on 10/08/2016 at 14:48 Additional Diagnostics Date of Service: Oct 09, 2016 Pre Operative Diagnosis Right displaced femoral neck fracture Post Operative Diagnosis Right displaced femoral neck fracture Procedure Right hip hemiarthroplasty Surgeon Surgeon: Gerardo Mendoza Assistants: Laurie Palma Indication for Procedure Right femoral neck fracture Findings Displaced femoral neck fracture Details of Procedure Implants: Depuy/Synthes [place] cemented size 6 stem and 53 unipolar head component] (standard), 11 cementralizer, +0 tapered spacer Anesthesia: general- GETA Assessment & Plan Mr. Ramon Thakur is a very pleasant 71 year old gentleman with a history prostate cancer, [place] 2001, TIA 2009, hypertension, IDDM, hyperlipidemia, who presents to the [facility] Emergency Department due to right hip pain after ground level fall. CT hip show non displaced right femoral neck fracture. Orthopedic surgeon planning for right hemiarthroplasty tomorrow. # Acute Non-displaced Femoral neck fracture, right sided, 2nd to ground level fall. Present on admission. Active. -s/p Right hip hemiarthroplasty 10/09/16 - IV Morphine for severe pain PRN. -DVT prophylaxis xarelto 10 mg by mouth daily 35 - continue PT # fever -Likely reactive due to surgery -temp 38.3 -No tachycardia,. We will send CBC, pro-calcitonin. Urinalysis and chest x-ray -Aleman removed- Chronic conditions: Insulin Using Diabetes Mellitus - 70/30 Novolin 25U BID at home, will use Humulin substitute here. lower dose from 25 units twice a day to 18 units bid glucose in the 120s - HA1c ordered. Hypertension - Continue home Lisinopril 20 mg daily. History of CVA - On Aggrenox at home, holding for surgery. - Continue home Lovastatin 10 Mg HS. History of [place], no stents, 2001. - On Aggrenox at home, holding for surgery. History of Prostate Cancer, radiation therapy, Ongoing. - Continue Flomax Acetaminophen for mild pain when necessary. Bowel regimen Senna and MiraLAX scheduled and PRN. Zofran when necessary for nausea and vomiting. SubQ heparin held for now. SCDs in place. High-risk medications: IV Morphine Patient Status: Patient is admitted under inpatient status with expected length of stay greater than 2 midnights due to severity of presenting symptoms, risk of adverse event, and complexity of treatment plan. Disposition: Possible discharge to SNF 1-2 days VTE Prophylaxis: SCDs (left lower extremity SCD), YENNI Hose (bilateral thigh- high YENNI hose), Other (Xarelto 10 mg daily 35 days postop for DVT prophylaxis) VTE Mechanical Devices: Anti-Embolic stockings Resuscitation Status: CPR: Attempt Resuscitation Nicola Erickson MD Oct 11, 2016 14:15
[2016-10-11 14:48] LABS: BASOPHILS % (AUTO) 0.2 % (0-3)
[2016-10-11 14:52] LABS: EOSINOPHILS % (AUTO) 0.9 % (0-5); MONOCYTES % (AUTO) 12.4 % (4-12); Mean Corpuscular Hemoglobin 30.7 pg (27.0-35.0); Mean Corpuscular Volume 94.6 fL (81-100); NEUTROPHILS % (AUTO) 78.5 % (40-74); Platelet Count 91 bil/L (150-400)
--- NOTE | 2016-10-11 15:16 | DRSVH ---
PROCEDURE: X-RAY CHEST ONE VIEW, PORTABLE ([id number]) INDICATIONS: fever TECHNIQUE: One view of the chest was acquired. COMPARISON: [facility], CR, XR CHEST 1VW, 10/08/2016, 14:08. FINDINGS: Surgical changes and devices: None. Lungs and pleura: Left wrist or infiltrate suspicious for pneumonia. No pleural effusions or pneumot horax. Mediastinum: Mediastinal contours appear normal. Heart size is normal. Bones and chest wall: No suspicious bony lesions. Overlying soft tissues appear unremarkable. IMPRESSION: Suspect left basilar pneumonia. Dictated by: Erich Pro M.D. on 10/11/2016 at 15:14 Approved by: Erich Pro M.D. on 10/11/2016 at 15:15
--- NOTE | 2016-10-11 18:35 | NUR ---
Void Calix dc'd at 1230 after pt made aware of reasons calix needing to be dc'd. Pt agreeable. After working with PT, pt ready for calix removal. Pt encouraged to hydrate and made aware of the need to void within 4 hrs - stated understanding. Urinal at bedside. At 1630, pt stating not feeling the urge to urinate. Asked if he wanted to at least try, stated he does not work that way. Urinal in reach and pt encouraged to let staffing know when he needed to go to assist with placement d/t wedge in place. Prior to change of shift, at ~1815, pt attempted to void, unable to make into urinal resulted in spilling and incontinence. CNAx2 assisted with getting pt cleaned up. Care continues.
[2016-10-11 19:44] VITALS: BP 124/67; PULSE 93; RESP 16; O2SAT 98
[2016-10-12 00:48] LABS: APPEARANCE,URINE CLEAR (CLEAR,HAZY); COLOR,URINE YELLOW (YELLOW); OCCULT BLOOD,URINE TRACE (NEGATIVE)
[2016-10-12 00:49] LABS: UROBILINOGEN,URINE NORMAL (NORMAL)
[2016-10-12 04:20] VITALS: BP 120/67; PULSE 76; RESP 16; O2SAT 96
--- NOTE | 2016-10-12 05:08 | NUR ---
/ pain Using urinal appropriately, voiding adequately. Pain well controlled with minimal use of PO meds. Has not been OOB this shift, will continue to work with PT. Hourly rounding ongoing.
[2016-10-12] MEDS: Insulin LISPRO 300 Unit/3 mL Inj SUBQ SCH ×2 (08:00→12:17)
[2016-10-12] MEDS: Insulin Human NPH-Reg 70-30 100 Unit/mL 3 mL Pen SUBQ SCH (08:17)
[2016-10-12] MEDS: Sodium Chloride LOK Flush 10 mL Syringe IV SCH (08:17)
[2016-10-12] MEDS: Dipyridamole-Aspirin 200-25 mg ER12 Capsule PO SCH (08:17)
[2016-10-12] MEDS: oxyCODONE-Acetamin 5-325 mg Tablet PO PRN ×2 (08:18→13:47)
[2016-10-12 08:59] LABS: BASOPHILS % (AUTO) 0.4 % (0-3); EOSINOPHILS % (AUTO) 3.9 % (0-5); MONOCYTES % (AUTO) 15.4 % (4-12); Mean Corpuscular Volume 95.1 fL (81-100); Platelet Count 97 bil/L (150-400)
[2016-10-12 09:47] VITALS: BP 99/59; PULSE 84; RESP 18; O2SAT 93
--- NOTE | 2016-10-12 10:09 | PCM.PNORTH ---
Subjective Date of Service: Oct 12, 2016 Visit Information: Reason for Visit Hip Fx Surgery/Surgery Date R HIP HEMIARTHROPLASTY 10/09/16 Post-Op Day # 3 Date of Admission: Oct 08, 2016 at 14:59 Hospital Day # Subjective Patient states his pain is well controlled today. He states he has been up with PT and feels as if he is getting stronger. Postop General: No Shortness of Breath, No Chest Pain Pain Management: PO, IV Push Objective Exam Objective Patient sitting up in bed having breakfast Vital Signs and I/O Vital Sign - Last Date Time Temp Pulse Resp B/P Pulse Ox O2 Delivery O2 Flow Rate FiO2 10/12/16 09:47 36.8 84 18 99/59 93 Nasal Cannula 3.00 Intake and Output 10/11/16 10/11/16 10/12/16 Cumulative From/Thru 15:00 23:00 07:00 10/08/16 11:57 - 10/12/16 05:21 Intake Total 1000 ml 450 ml 7039 ml Output Total 600 ml 700 ml 4700 ml Balance 400 ml -250 ml 2339 ml Intake Oral 1000 ml 450 ml 3926 ml IV Total 3113 ml Output Urine Total 600 ml 700 ml 4300 ml Estimated Blood Loss 400 ml # Voids 1 1 # Bowel Movements 1 0 1 Lab & Micro Results Laboratory Tests Test 10/11/16 14:41 10/12/16 08:05 White Blood Count 10.1th/mm3 (3.8-10.1) 7.7th/mm3 (3.8-10.1) Red Blood Count 3.32mil/mm3 (4.40-5.80) 3.29mil/mm3 (4.40-5.80) Hemoglobin 10.2g/dL (13.8-17.2) 10.2g/dL (13.8-17.2) Hematocrit 31.4% (41.0-50.0) 31.3% (41.0-50.0) Mean Corpuscular Volume 94.6fL (81-100) 95.1fL (81-100) Mean Corpuscular Hemoglobin 30.7pg (27.0-35.0) 31.0pg (27.0-35.0) Mean Corpuscular Hemoglobin Concent 32.5% (32.0-37.0) 32.6% (32.0-37.0) Red Cell Distribution Width 12.5% (12.3-15.4) 12.5% (12.3-15.4) Platelet Count 91bil/L (150-400) 97bil/L (150-400) Neutrophils (%) (Auto) 78.5% (40-74) 66.0% (40-74) Lymphocytes (%) (Auto) 7.7% (14-46) 14.0% (14-46) Monocytes (%) (Auto) 12.4% (4-12) 15.4% (4-12) Eosinophils (%) (Auto) 0.9% (0-5) 3.9% (0-5) Basophils (%) (Auto) 0.2% (0-3) 0.4% (0-3) Sodium Level 136mEq/L (134-144) 139mEq/L (134-144) Potassium Level 4.5mEq/L (3.5-5.2) 4.4mEq/L (3.5-5.2) Chloride Level 101mEq/L (97-108) 104mEq/L (97-108) Carbon Dioxide Level 22mmol/L (18-29) 22mmol/L (18-29) Blood Urea Nitrogen 30mg/dL (8-27) 31mg/dL (8-27) Creatinine 1.48mg/dL (0.76-1.27) 1.14mg/dL (0.76-1.27) Estimat Glomerular Filtration Rate 50mL/min (>59) 67mL/min (>59) Glucose Level 226mg/dL (60-99) 126mg/dL (60-99) Calcium Level 7.7mg/dL (8.5-10.1) 8.1mg/dL (8.5-10.1) Total Bilirubin 0.3mg/dL (0.0-1.2) 0.4mg/dL (0.0-1.2) Aspartate Amino Transf (AST/SGOT) 17U/L (0-50) 13U/L (0-50) Alanine Aminotransferase (ALT/SGPT) 8U/L (0-44) 8U/L (0-44) Alkaline Phosphatase 66U/L (25-160) 66U/L (25-160) Total Protein 5.5g/dL (6.4-8.4) 5.5g/dL (6.4-8.4) Albumin 2.9g/dL (3.4-5.0) 2.9g/dL (3.4-5.0) Procalcitonin 0.40ng/mL (0.00-0.08) 0.32ng/mL (0.00-0.08) Microbiology 10/11/16 Urine Culture - Preliminary, Resulted No growth to date Result Diagram: 10/12/1680410/12/16804 General Appearance: Alert, Oriented X3, Cooperative, No Acute Distress Extremities: Distal Pulses Palpable, Warm, No Edema, Cyanotic Postop Sensory Motor: Distal Motor Intact, Movement in Toes, Distal Sensation Intact SURGICAL WOUND : Wound Location/Description Dressings c/d/i Activity: Activity per PT, Ambulate with PT (weightbearing as tolerated on the right lower extremity using front wheeled walker.) Assessment & Plan Impression Postop day #3 from right hip hemiarthroplasty performed on 10/09/[address] Gerardo Mendoza Problems: Plan Weightbearing as tolerated on the right lower extremity using front wheeled walker. Posterior hip precautions in place. Use abduction wedge while in bed 4 weeks postop. Continue formal physical therapy for mobility, gait and safety. Continue by mouth pain medication in the form of [place] as ordered. Continue Xarelto 10 mg 35 days postop for DVT prophylaxis. Change dressing as needed in the future. Keep incision covered and do not get wet until 2 week appointment. Follow-up in 2 weeks at [facility] orthopedic clinic with Dr. Gerardo Mendoza for suture removal and Steri-Strips Follow-up in 6 weeks at [facility] orthopedic clinic with Dr. Gerardo Mendoza with AP pelvis and right crosstable lateral hip x-ray on arrival Orthopedics thanks hospitalist service for their help in the medical management of this patient. From orthopedic standpoint patient may discharge by hospitalist service at any time if he is determined to be medically stable. Orthopedics will sign off. Anticipate discharge today. VTE Prophylaxis: SCDs (left lower extremity SCD), YENNI Hose (bilateral thigh- high YENNI hose), Other (Xarelto 10 mg daily 35 days postop for DVT prophylaxis) Resuscitation Status: CPR: Attempt Resuscitation Laurie Palma PA-C Oct 12, 2016 10:09
--- NOTE | 2016-10-12 10:55 | NUR ---
Social Work: Continued Discharge Planning D: EMR reviewed. Pt is on day 4 of hospitalization. MOON received MD order for SNF placement. Pt is 100% service connected through the [place] and has MCR Part A. MOON placed T/C to [place]oc[facility] at [facility] [place] Per pt's service connection, pt can either use MCR (which will cover 20 days of SNF stay at 100% - [facility] will not mushroom picker any remaining days and pt would have to pay out of pocket for days of stay past 20 days if pt uses MCR). Or, pt can go to [place] contracted SNF ([facility] in [place] or [facility] in [place]) and pt's stay would be covered 100% by [place]. MOON discussed these options with pt and pt states he would like to use his MCR to SNF and if pt needs more than 20 days at SNF, he will transfer to [place] SNF - pt does not believe he will need more than 20 days at SNF. MOON informed pt that length of stay will depend on pt's progress - pt agreeable. MOON provided choice list and pt chose [place] SNFs ([place] and [facility]). T/C to Peterson who is the Liaison for both [facility] and [facility]. MOON discussed pt's MCR Part A and confirmed he would be covered at 20-days. Peterson confirmed if pt needs more than a 20 day stay, they would help pt transfer to a [facility] facility. Peterson will come to visit pt today at hospital and can possibly accept pt today - Peterson to follow up with MOON at 1200. MOON faxed H&P, facesheet, progress notes, therapy notes, and RN notes to [phone]. A: Pt for whom a SNF if medically necessary P: MOON sent referral to [facility] and [facility] - Peterson will come meet pt at hospital. MOON will follow for update from Peterson and update MD. RACHANA Asher
--- NOTE | 2016-10-12 13:23 | PCM.DIMED ---
Discharge Instructions Date of Service Oct 12, 2016 Dates of Hospitalization Oct 08, 2016 at 14:59 Discharge Diagnosis Discharge Diagnosis # Acute Non-displaced Femoral neck fracture, right sided, 2nd to ground level fall. Present on admission. Active. -s/p Right hip hemiarthroplasty 10/09/16 Chronic conditions: Insulin Using Diabetes Mellitus Hypertension History of CVA History of CA, no stents, 2001. History of Prostate Cancer, radiation therapy, Ongoing. Diet Discharge Diet: Diabetic Activity Discharge Activity: Outpatient Physical Therapy (at [facility]) Call your provider Call your provider for: Fever or Chills, Shortness of breath, Bleeding, Chest pain, Vomitting, Excessive diarrhea, Weakness (unilateral) Patient Instructions Patient Instructions You were hospitalized due to right hip fracture . You underwent Right hip hemiarthroplasty on 10/09/16. orthopedics recommendations Weightbearing as tolerated on the right lower extremity using front wheeled walker. Posterior hip precautions in place. Use abduction wedge while in bed 4 weeks postop. Continue formal physical therapy for mobility, gait and safety. Continue by mouth pain medication in the form of [place] as ordered. Continue Xarelto 10 mg 35 days postop for DVT prophylaxis. Change dressing as needed in the future. Keep incision covered and do not get wet until 2 week appointment. Follow-up in 2 weeks at [facility] orthopedic clinic with Dr. Gerardo Mendoza for suture removal and Steri-Strips Follow-up in 6 weeks at [facility] orthopedic clinic with Dr. Gerardo Mendoza with AP pelvis and right crosstable lateral hip x-ray on arrival We have lowered your insulin 70/30 mix from 25 u twice daily to 20 units twice daily Follow-up Provider: EREN ANTUNEZ MD Follow-up with PCP in: 2 weeks Provider: Gerardo Mendoza MD Follow-up in: 2 weeks Follow-up with Mid-level in: 1 week ([facility] ) Nicola Erickson MD Oct 12, 2016 13:23
[2016-10-12] MEDS ORDERED: INS7030U SUBQ (13:25)
[2016-10-12] MEDS ORDERED: RIVA10TA PO (13:25)
[2016-10-12] MEDS ORDERED: OXYC1TAB24 PO (13:25)
--- NOTE | 2016-10-12 13:36 | NUR ---
Mobility/O2 Mobility: Pt with poor mobility s/p POD#3 awais hip. Generalized weakness, remains bedbound - able to dangle MAX assist, unable to ambulate at this time. Minimal increase to strength in comparison to yesterday (10/11/16). Able to assist with bed mobility but 1-2 PA O2: Pt requiring 3-4L NC. Wearing CPOx, O2 ranges low 90s to high of 96%. IS at bedside, encouraged pt usage - pt performing. Currently on 3.5L NC with HOB at 45 degrees. Encourage CDB. Care continues.
[2016-10-12] MEDS ORDERED: AMOX-366 PO (13:58)
[2016-10-12] MEDS ORDERED: OXYC-466 PO (14:43)
[2016-10-12 14:57] VITALS: BP 105/65; PULSE 82; RESP 20; O2SAT 95
--- NOTE | 2016-10-12 15:14 | NUR ---
Social Work: Discharge/Multidisciplinary Rounds D: EMR reviewed. Pt is on day 4 of hospitalization. MOON received MD order for SNF placement. Pt is 100% service connected through the [place] and has MCR Part A. MOON placed T/C to Jocelyn at [facility] - Per pt's service connection, pt can either use MCR (which will cover 20 days of SNF stay at 100% - [facility] will not sales support rep any remaining days and pt would have to pay out of pocket for days of stay past 20 days if pt uses MCR). Or, pt can go to [place] contracted SNF ([facility] in [place] or [facility] in [place]) and pt's stay would be covered 100% by [place]. MOON discussed these options with pt and pt states he would like to use his MCR to SNF and if pt needs more than 20 days at SNF, he will transfer to [place] SNF - pt does not believe he will need more than 20 days at SNF. MOON informed pt that length of stay will depend on pt's progress - pt agreeable. MOON provided choice list and pt chose [place] SNFs ([place] and [facility]). T/C to Peterson who is the Liaison for both [facility] and [facility]. MOON discussed pt's MCR Part A and confirmed he would be covered at 20-days. Peterson confirmed if pt needs more than a 20 day stay, they would help pt transfer to a [facility] facility. Peterson confirmed they can accept pt today. MOON faxed H&P, facesheet, progress notes, therapy notes, and RN notes to [phone]. MOON received order for BLS transport. MOON placed T/C to [facility] who confirmed they will transport pt at 1600 today. MOON completed PCS form and attached supporting documents justifying need for BLS transport also confirming pt will need to transport on 4L of 02 (per RN/MD). A: Pt for whom a SNF if medically necessary P: [facility] to transport pt (pt is unable to sit in an erect position, pt needs to transport on 4L of 02, and pt cannot remain in an erect sitting position without max assist and pain) to [facility] where pt has been accepted with Dr. Spears to follow. RN updated, pt updated, all agreeable to plan. MOON confirmed with [facility] that pt's transport would be covered based on insurance provided. RACHANA Asher
--- NOTE | 2016-10-12 15:31 | NUR ---
DISCHARGE Pt discharged to [facility]. Report given to Tiffany Rich RN, of [facility]. Addendum: 10/12/16 at 1534 by GISELL MART RN Pt A&Ox3, RIDDLE - limited to RLE, Slip cover transfer from bed to [facility], Pain present with movement but settled - last medicated at 1347. IVx2 dc'd intact, Hard copy scripts placed in discharge packet - put together by CM, Pt understanding and aware of plan for transfer. No questions/concerns left unanswered at time of discharge. Dressing with minimal serous dried drainage, Jayy Hose in place bilaterally. VSS - transported on 3.5L NC. Pt off unit at 1520.
--- NOTE | 2016-10-12 16:18 | PCM.DC.MED ---
Discharge Summary Date of Service Oct 12, 2016 Dates of Hospitalization Date of Hospital Admission Oct 08, 2016 at 14:59 Date of Discharge: Oct 12, 2016 Providers: Admitting Physician: Josef Schwarz DO Primary Care Physician: Eren Antunez MD Attending Physician: Nicola Mcneil MD Diagnosis at Time of Discharge Diagnosis at Time of Discharge # Acute Non-displaced Femoral neck fracture, right sided, 2nd to ground level fall. Present on admission. Active. -s/p Right hip hemiarthroplasty 10/09/16 Chronic conditions: Insulin Using Diabetes Mellitus Hypertension History of CVA History of NV, no stents, 2001. History of Prostate Cancer, radiation therapy, Ongoing. Consultations ortho Dr Mendoza Procedures XRay, CTs & MRIs CT HIP RIGHT W/O CONTRAST IMPRESSION: 1. Angulated, displaced right femoral neck fracture as above. No other fracture or dislocation. 2. L5-S1 spondylolysis and trace spondylolisthesis. Approved by: Megan Curtis M.D. on 10/08/2016 at 14:48 Other Diagnostics Date of Service: Oct 09, 2016 Pre Operative Diagnosis Right displaced femoral neck fracture Post Operative Diagnosis Right displaced femoral neck fracture Procedure Right hip hemiarthroplasty Surgeon Surgeon: Gerardo Mendoza Assistants: Laurie Palma Indication for Procedure Right femoral neck fracture Findings Displaced femoral neck fracture Details of Procedure Implants: Depuy/Synthes [place] cemented size 6 stem and 53 unipolar head component] (standard), 11 cementralizer, +0 tapered spacer Anesthesia: general- GETA Brief History per HPI Mr. Ramon Thakur is a very pleasant 71 year old gentleman with a history prostate cancer, NV 2001, TIA 2009, hypertension, IDDM, hyperlipidemia, who presents to the [facility] Emergency Department due to right hip pain after ground level fall. Patient reports having "heavy legs" following TIA in 2009, and was walking back to his car in the [place] parking lot when his foot caught a concrete parking block, causing him to trip and fall onto his right elbow and right hip. He could not bear weight on his right leg and was brought to the ED via EMS. He denies syncope or loss of consciousness, dizziness, headache, headache, chest pain, shortness of breath. Social: Lives in [place], alone with a cat, in a house. Patient is Full code. In the ED patients vitals:T-36.4, HR-68, RR-14, BP-113/54, 97% RA. EKG reviewed - Normal sinus rhythm, no acute ST changes. ECHO in Mar and was cleared at that time for prostate procedure in April. - Do not have access to outpatient records. CT Hip - 1. Angulated, displaced right femoral neck fracture as above. No other fracture or dislocation. 2. L5-S1 spondylolysis and trace spondylolisthesis. T-36.4, HR-68, RR-14, BP-113/54, 97% RA. In the ED patient received: zofran, Morphine IV, Tylenol. Orthopedic surgery was consulted and planning for right hemiarthroplasty tomorrow. NPO after midnight. Hospital Course Mr. Ramon Thakur is a very pleasant 71 year old gentleman with a history prostate cancer, NV 2001, TIA 2009, hypertension, IDDM, hyperlipidemia, who presents to the [facility] Emergency Department due to right hip pain after ground level fall. CT hip show non displaced right femoral neck fracture. Orthopedic surgeon planning for right hemiarthroplasty tomorrow. # Acute Non-displaced Femoral neck fracture, right sided, 2nd to ground level fall. Present on admission. Active. -s/p Right hip hemiarthroplasty 10/09/16 - IV Morphine for severe pain PRN. -DVT prophylaxis xarelto 10 mg by mouth daily 35 - continue PT at SNF # suspected pneumonia -temp 38.3,patient requiring 2L O2 intermittently ,elevated pro-calcitonin. ucx no growth -No tachycardia,. -Aleman removed -Augmentin prescribed upon discharge Chronic conditions: Insulin Using Diabetes Mellitus - 70/30 Novolin 25U BID at home, will use Humulin substitute here. lower dose from 25 units twice a day to 18 units bid glucose in the 120s - HA1c ordered. Hypertension - Continue home Lisinopril 20 mg daily. History of CVA - On Aggrenox at home, - Continue home Lovastatin 10 Mg HS. History of NV, no stents, 2001. - On Aggrenox at home, History of Prostate Cancer, radiation therapy, Ongoing. - Continue Flomax Disposition: discharge to SNF Exam Vital Signs (Last) Date Time Temp Pulse Resp B/P Pulse Ox O2 Delivery O2 Flow Rate FiO2 10/12/16 14:57 37.1 82 20 105/65 95 Nasal Cannula 3.50 Exam General: Elderly gentleman lying in bed and in no acute distress HEENT: Normocephalic, atraumatic. External ears without defect. Pupils equal, round, and reactive to light and accommodation. Cardiovascular: Regular rate and rhythm with no murmurs, rubs, or gallops appreciated Pulmonary: Clear to auscultation bilaterally with no crackles, wheezes, or rhonchi. Normal respiratory effort with no use of accessory muscles. Abdomen: Bowel tones present. Soft, nontender, nondistended. No hepatosplenomegaly or masses appreciated. Extremities: No clubbing, cyanosis, edema, or lymphadenopathy appreciated. Right hip dressing C/D/I Skin: Normal temperature, turgor, and texture; no rash, ulcers, or subcutaneous nodules appreciated. Neurological: Cranial nerves grossly intact. Normal muscle strength, tone, and bulk. Reflexes, coordination, and sensory function within normal limits. No known gait impairment. Psychiatric: Normal mood and affect. Alert and oriented to person, place, and time. Test 10/08/16 19:43 10/09/16 06:37 10/11/16 00:24 10/12/16 08:05 Hemoglobin A1c 6.0% (4.8-5.6) Prothrombin Time 10.6sec (8.1-12.5) Prothromb Time International Ratio 0.99ratio Urine Color Yellow (YELLOW) Urine Appearance Clear (CLEAR,HAZY) Urine pH 6.0 (5.0-8.0) Urine Specific Mobile 1.020 (1.003-1.035) Urine Protein Negativemg/dL (NEG,TRACE) Urine Glucose (UA) Negativemg/dL (NEGATIVE) Urine Ketones Negativemg/dL (NEGATIVE) Urine Occult Blood Trace (NEGATIVE) Urine Nitrite Negative (NEGATIVE) Urine Bilirubin Negative (NEGATIVE) Urine Urobilinogen Normalmg/dL (NORMAL) Urine Leukocyte Esterase Negative (NEGATIVE) Urine RBC 0-2/hpf (0-2) Urine WBC 6-10/hpf (0-5) Urine Epithelial Cells Few/hpf (NONE-MOD) Urine Crystals None seen (NONE SEEN) Urine Bacteria Few/hpf (NONE-FEW) Urine Hyaline Casts Occasional/lpf (NONE) Urine Granular Casts None seen (NONE SEEN) Urine Waxy Casts None seen (NONE SEEN) Urine Red Blood Cell Casts None seen (NONE SEEN) Urine White Blood Cell Casts None seen (NONE SEEN) Urine Mucus Present (None Seen) Urine Trichomonas None seen (NONE SEEN) Urine Yeast None (NONE SEEN) Urinalysis Comment None Urine Culture Reflexed Indicated White Blood Count 7.7th/mm3 (3.8-10.1) Red Blood Count 3.29mil/mm3 (4.40-5.80) Hemoglobin 10.2g/dL (13.8-17.2) Hematocrit 31.3% (41.0-50.0) Mean Corpuscular Volume 95.1fL (81-100) Mean Corpuscular Hemoglobin 31.0pg (27.0-35.0) Mean Corpuscular Hemoglobin Concent 32.6% (32.0-37.0) Red Cell Distribution Width 12.5% (12.3-15.4) Platelet Count 97bil/L (150-400) Neutrophils (%) (Auto) 66.0% (40-74) Lymphocytes (%) (Auto) 14.0% (14-46) Monocytes (%) (Auto) 15.4% (4-12) Eosinophils (%) (Auto) 3.9% (0-5) Basophils (%) (Auto) 0.4% (0-3) Sodium Level 139mEq/L (134-144) Potassium Level 4.4mEq/L (3.5-5.2) Chloride Level 104mEq/L (97-108) Carbon Dioxide Level 22mmol/L (18-29) Blood Urea Nitrogen 31mg/dL (8-27) Creatinine 1.14mg/dL (0.76-1.27) Estimat Glomerular Filtration Rate 67mL/min (>59) Glucose Level 126mg/dL (60-99) Calcium Level 8.1mg/dL (8.5-10.1) Total Bilirubin 0.4mg/dL (0.0-1.2) Aspartate Amino Transf (AST/SGOT) 13U/L (0-50) Alanine Aminotransferase (ALT/SGPT) 8U/L (0-44) Alkaline Phosphatase 66U/L (25-160) Total Protein 5.5g/dL (6.4-8.4) Albumin 2.9g/dL (3.4-5.0) Procalcitonin 0.32ng/mL (0.00-0.08) Discharge Medications Discharge Medications ([Flomax]) 10 MG PO DAILY (Reported) Amoxicillin/Clav K 875-125 mg (Augmentin 875-125 mg) 1 Each Tablet 1 TABLET PO BID Prescribed by: NICOLA MCNEIL MD Dipyridamole/Aspirin 200-25 mg (Aggrenox 200-25 mg) 1 Each Capsule 1 CAPSULE PO DAILY (Reported) Gabapentin (Gabapentin) 300 Mg Capsule 300 MG PO HS (Reported) Lisinopril (Lisinopril) 20 Mg Tablet 20 MG PO DAILY (Reported) Lovastatin (Lovastatin) 10 Mg Tablet 10 MG PO HS (Reported) Rivaroxaban (Xarelto) 10 Mg Tablet 10 MG PO DAILY Prescribed by: NICOLA MCNEIL MD As needed Insul NPH Hu Rec/Ins Rg Hu Rec (Novolin 70/30 U100 Insulin Vial) 100 U/1 Ml U 20 U SUBQ BID PRN PRN diabetes control Prescribed by: NICOLA MCNEIL MD oxyCODONE-Acetaminophen 10-325 mg (oxyCODONE-Acetaminophen 10-325 mg) 1 Each Tablet 1 TABLET PO Q4H PRN PRN For Pain Prescribed by: NICOLA MCNEIL MD Miscellaneous Medications Multivitamin (Once Daily) 1 Each Tablet 1 EACH PO (Reported) Followup Plan Disposition: SNF Discharge Diet: Diabetic Discharge Activity: Outpatient Physical Therapy (at [facility]) Patient Instructions You were hospitalized due to right hip fracture . You underwent Right hip hemiarthroplasty on 10/09/16. orthopedics recommendations Weightbearing as tolerated on the right lower extremity using front wheeled walker. Posterior hip precautions in place. Use abduction wedge while in bed 4 weeks postop. Continue formal physical therapy for mobility, gait and safety. Continue by mouth pain medication in the form of [place] as ordered. Continue Xarelto 10 mg 35 days postop for DVT prophylaxis. Change dressing as needed in the future. Keep incision covered and do not get wet until 2 week appointment. Follow-up in 2 weeks at [facility] orthopedic clinic with Dr. Gerardo Mendoza for suture removal and Steri-Strips Follow-up in 6 weeks at [facility] orthopedic clinic with Dr. Gerardo Mendoza with AP pelvis and right crosstable lateral hip x-ray on arrival We have lowered your insulin 70/30 mix from 25 u twice daily to 20 units twice daily Follow-up Provider: EREN ANTUNEZ MD Follow-up with PCP in: 2 weeks Provider: Gerardo Mendoza MD Follow-up in: 2 weeks Follow-up with Mid-level in: 1 week ([facility] ) Time spent 35 minutes coordinating discharge copies to: Gerardo Mendoza MD; EREN ANTUNEZ MD, Melaku MD Oct 12, 2016 16:18
== END 2016-10-12 15:10 | DRG 469 ==
LOC: SED 11:53 → OSC 14:59
PROVIDERS: ADMIT Internal Medicine; ATTEND Internal Medicine
PROC: 0SRR039 Replacement of Right Hip Joint, Femoral Surface with Ceramic Synthetic Substitute, Cemented, Open Approach (ICD-10-PCS; principal; 2016-10-09 10:30)
DX: S72.001A Fracture of unspecified part of neck of right femur, initial encounter for closed fracture (principal); J18.9 Pneumonia, unspecified organism; I10 Essential (primary) hypertension; E78.5 Hyperlipidemia, unspecified; M54.5 Low back pain; E11.40 Type 2 diabetes mellitus with diabetic neuropathy, unspecified; K21.9 Gastro-esophageal reflux disease without esophagitis; I25.10 Atherosclerotic heart disease of native coronary artery without angina pectoris; W18.31XA Fall on same level due to stepping on an object, initial encounter; W01.0XXA Fall on same level from slipping, tripping and stumbling without subsequent striking against object, initial encounter; Z86.73 Personal history of transient ischemic attack (TIA), and cerebral infarction without residual deficits; I25.2 Old myocardial infarction; Z85.46 Personal history of malignant neoplasm of prostate; Z79.4 Long term (current) use of insulin; Y92.89 Other specified places as the place of occurrence of the external cause